=== PATIENT | female | born 1985 | race Caucasian/White ===

== ENCOUNTER → 2020-03-24 17:10 | Outpatient (CLI) | payer OTHER, SELFPAY ==
[2020-03-24 17:43] LABS: Add Manual Diff / Slide Review NO; Basophils Absolute Auto 100 /uL (0-100); Basophils Percent Auto 0.7 % (0-2); Eosinophils Absolute Auto 100 /uL (0-450); Eosinophils Percent Auto 1.4 % (2-4); Hematocrit 41.9 % (36-46); Hemoglobin 14.1 g/dL (12.0-16.0); Lymphocytes Absolute Auto 3100 /uL (1100-4500); Lymphocytes Percent Auto 32.8 % (25-40); Mean Corpuscular HGB Conc 33.7 % (30-36); Mean Corpuscular Hemoglobin 30.4 PG (26-34); Mean Corpuscular Volume 90.2 fL (80-100); Monocytes Absolute Auto 600 /uL (0-900); Monocytes Percent Auto 6.1 % (3-14); Neutrophils Absolute Auto 5600 /uL (1500-7000); Platelet Count 248 X10^3/uL (150-400); Red Blood Cell Count 4.65 X10^6/uL (4.0-5.2); Red Cell Distribution Width 12.9 % (11.6-14.8); White Blood Cell Count 9.5 X10^3/uL (4.5-11.0)
[2020-03-24 17:53] LABS: HEMOLYSIS < 15 (0-50); Iron 71 ug/dL (37-170)
[2020-03-24 17:55] LABS: Hemoglobin A1C% w Est Avg Glu 5.3 % (4.0-6.0)
[2020-03-24 17:56] LABS: Alanine Aminotransferase 15 IU/L (<35); Albumin 4.5 g/dL (3.5-5.0); Albumin Globulin Ratio 1.6 (1.0-2.8); Alkaline Phosphatase 73 U/L (38-126); Aspartate Aminotransferase 20 IU/L (14-36); BUN Creatinine Ratio 20.7 (6-22); Bilirubin Total 0.3 mg/dL (0.2-1.3); Blood Urea Nitrogen 12 mg/dL (7-17); Calcium 9.8 mg/dL (8.4-10.2); Carbon Dioxide 31 mmol/L (22-32); Chloride 102 mmol/L (98-107); Cholesterol 164 mg/dL (140-199); Estimated Glomerular Filt Rate > 60.0 mL/min (>60); Globulin 2.8 g/dL (1.7-4.1); Glucose 93 mg/dL (70-100); HDL Cholesterol 63 mg/dL (40-60); HEMOLYSIS < 15 (0-50); LDL Cholesterol Calculated 88 mg/dL (<100); Potassium 4.3 mmol/L (3.4-5.1); Sodium 137 mmol/L (137-145); Total Protein 7.3 g/dL (6.3-8.2); Triglycerides 64 mg/dL (35-150)
[2020-03-24 18:07] LABS: Percent Iron Saturation 24 % (15-50); Total Iron Binding Capacity 292 ug/dL (265-497); Transferrin 210 mg/dL (206-381)
[2020-03-24 18:27] LABS: Ferritin 85 ng/mL (6-137)
== END ==
PROVIDERS: PCP Family Medicine; Referring Provider Family Medicine; Visit Provider Family Medicine
DX: R63.2 Polyphagia (principal); Z13.0 Encounter for screening for diseases of the blood and blood-forming organs and certain disorders involving the immune mechanism; Z13.1 Encounter for screening for diabetes mellitus; Z13.220 Encounter for screening for lipoid disorders; Z13.228 Encounter for screening for other metabolic disorders; Z13.29 Encounter for screening for other suspected endocrine disorder; Z76.89 Persons encountering health services in other specified circumstances
CPT/HCPCS: 36415; 80053; 80061; 82728; 83036; 83540; 83550; 84443; 85025

== ENCOUNTER → 2020-07-08 16:52 | Outpatient (CLI) | payer OTHER, SELFPAY ==
[2020-07-08 21:30] LABS: Urine N gonorrhoeae NOT DETECTED
[2020-07-08 21:31] LABS: Urine Chlamydia NOT DETECTED
== END ==
PROVIDERS: PCP Family Medicine; Visit Provider Obstetrics & Gynecology
DX: Z34.81 Encounter for supervision of other normal pregnancy, first trimester (principal); Z3A.09 9 weeks gestation of pregnancy
CPT/HCPCS: 87491; 87591

== ENCOUNTER → 2020-07-21 16:17 | Outpatient (CLI) | payer OTHER, SELFPAY ==
[2020-07-21 17:31] LABS: Add Manual Diff / Slide Review NO; Basophils Absolute Auto 100 /uL (0-100); Basophils Percent Auto 0.5 % (0-2); Eosinophils Absolute Auto 100 /uL (0-450); Eosinophils Percent Auto 1.3 % (2-4); Hematocrit 38.8 % (36-46); Hemoglobin 13.7 g/dL (12.0-16.0); Lymphocytes Absolute Auto 2300 /uL (1100-4500); Lymphocytes Percent Auto 24.9 % (25-40); Mean Corpuscular HGB Conc 35.2 % (30-36); Mean Corpuscular Hemoglobin 32.1 PG (26-34); Mean Corpuscular Volume 91.1 fL (80-100); Monocytes Absolute Auto 600 /uL (0-900); Monocytes Percent Auto 6.5 % (3-14); Neutrophils Absolute Auto 6300 /uL (1500-7000); Neutrophils Percent Auto 66.8 % (50-75); Platelet Count 231 X10^3/uL (150-400); Red Blood Cell Count 4.26 X10^6/uL (4.0-5.2); Red Cell Distribution Width 13.1 % (11.6-14.8); White Blood Cell Count 9.4 X10^3/uL (4.5-11.0)
[2020-07-21 18:07] LABS: Rubella Antibody IgG 70.3 IU/mL (>15)
[2020-07-21 18:14] LABS: Hepatitis B Surface Antigen NEGATIVE s/c (NEGATIVE)
[2020-07-21 18:31] LABS: HIV 1 & 2 Ab/Ag 4th Gen Combo NEGATIVE (NEGATIVE); Hep C Virus Ab w/Reflex Quant NEGATIVE s/c (NEGATIVE)
[2020-07-22 12:53] LABS: RPR Screen Non Reactive (Non Reactive); Varicella IgG Antibody 1226 index (Immune >165)
== END ==
PROVIDERS: PCP Family Medicine; Referring Provider Obstetrics & Gynecology; Visit Provider Obstetrics & Gynecology
DX: Z34.81 Encounter for supervision of other normal pregnancy, first trimester (principal)
CPT/HCPCS: 36415; 80055; 86787; 86803; 86850; 86900; 86901; 87389

== ENCOUNTER → 2020-08-12 13:22 | Outpatient (CLI) | payer OTHER, SELFPAY ==
[2020-08-12 15:21] LABS: Appearance Urine UA CLOUDY; Bilirubin Urine UA NEGATIVE (NEGATIVE); Color Urine UA YELLOW; Glucose Urine UA NEGATIVE (Negative); Ketones Urine UA TRACE (NEGATIVE); Leukocyte Esterase Urine UA NEGATIVE (NEGATIVE); Nitrite Urine UA NEGATIVE (Negative); Occult Blood Urine UA NEGATIVE (Negative); Protein Urine UA NEGATIVE (Negative); Urobilinogen Urine UA 0.2 E.U./dL (0.2)
== END ==
PROVIDERS: PCP Family Medicine; Visit Provider Obstetrics & Gynecology
DX: O09.521 Supervision of elderly multigravida, first trimester (principal); Z36.0 Encounter for antenatal screening for chromosomal anomalies
CPT/HCPCS: 36415; 81003; 81420; 87086

== ENCOUNTER → 2020-09-09 16:19 | Outpatient (CLI) | payer OTHER, SELFPAY ==
[2020-09-11 20:36] LABS: AFP Value 70.2 ng/mL (.); Gest Age on Col Date 18.6 weeks (.); Gestational Age EDD (.); Insulin Dep Diabetes No (.); OSBR Risk 1IN 4664 (.); Results Report (.); Test Results *Screen Negative* (.)
== END ==
PROVIDERS: PCP Family Medicine; Referring Provider Obstetrics & Gynecology; Visit Provider Obstetrics & Gynecology
DX: Z34.82 Encounter for supervision of other normal pregnancy, second trimester (principal); Z3A.18 18 weeks gestation of pregnancy
CPT/HCPCS: 36415; 82105

== ENCOUNTER → 2020-10-07 15:33 | Outpatient (CLI) | payer OTHER, SELFPAY ==
--- NOTE | 2020-10-07 15:34 | DI.US.S_ITS ---
PROCEDURE: US OB >= 14 WEEKS FETUS INDICATIONS: 20 WEEK ANATOMY SCAN OUTSIDE/PRIOR DATING DATA: Last menstrual period (LMP): 05/06/2020. LMP-based estimated date of delivery (LULÚ): 02/10/2021. First dating scan (date and location): 07/08/2020. Estimated date of delivery (LULÚ) from first dating scan: 02/06/2021. TECHNIQUE: Real-time scanning was performed of the fetus, with image documentation and biometric measurements. COMPARISON: [facility], , OB <= 14 WEEKS FETUS, 07/08/2020, 17:04. [facility], , OB <= 14 WEEKS FETUS, 08/12/2020, 13:15. FINDINGS: General: A single living intrauterine gestation is present. Presentation: Variable Placenta: Placental position is posterior,, without previa. Amniotic fluid index: 13.9 cm, normal range is 5-24 cm. heart rate: 152 beats per minute. Maternal cervical canal: 4.1 cm long. Normal lower limit is 2.5 cm. biometrics: Biparietal diameter: 5.5 cm, 22 weeks, 4 days Head circumference: 20.1 cm, 22 weeks, 2 days Abdominal circumference: 18 cm, 22 weeks, 6 days Femur length: 3.9 cm, 22 weeks, 5 days Estimated gestational age from initial scan: 22 weeks, 4 days Composite gestational age from present scan: 22 weeks, 4 days Estimated weight and percentile: 527 grams, 50 percent. Measurement variability for biometric dating: +/- 7 days from 14 weeks to 15 weeks 6 days gestation, +/- 10 days from 16 weeks to 21 weeks 6 days gestation, +/- 2 weeks from 22 weeks to 27 weeks 6 days gestation, +/- 3 weeks for 28 weeks gestation or later. weight reference: 4500 g or EFW >90/95% is considered macrosomia or large for gestational age. EFW <10% is small for gestational age. EFW 5% or less is considered intra-uterine growth restriction. Anatomic survey: Neuro: Ventricles are non-dilated at less than 10 mm. Cisterna magna is normal at 3-11 mm. Cerebellum is normal in size and morphology. Nuchal skin fold: Normal at less than 6 mm between 14-21 weeks gestational age. Face: Nose and lips, facial profile are normal. Spine: No evidence for spina bifida. Heart: 4-chambered heart is present, with normal ventricular outflow tracts. Diaphragm: Diaphragm is intact. Stomach: Left-sided stomach is present. Kidneys: No hydronephrosis. Normal is less than 5 mm in 2nd trimester, less than 7 mm in 3rd trimester. Cord: 3-vessel cord has orthotopic insertion. Bladder: Normal in size. Extremities: All 4 extremities identified. IMPRESSION: 1. Single live intrauterine with fetus in variable presentation. heart rate is 152 beats per minute. Normal amount of amniotic fluid. Estimated weight is 527 grams and is at 50 percent. Normal growth. 2. Normal anatomic survey. Dictated by: Mac Teague M.D. on 10/07/2020 at 18:14 Approved by: Mac Teague M.D. on 10/07/2020 at 18:17
== END ==
PROVIDERS: PCP Family Medicine; Referring Provider Obstetrics & Gynecology; Visit Provider Obstetrics & Gynecology
DX: Z34.82 Encounter for supervision of other normal pregnancy, second trimester (principal); Z3A.22 22 weeks gestation of pregnancy
CPT/HCPCS: 76811

== ENCOUNTER → 2020-11-03 15:01 | Outpatient (CLI) | payer OTHER, SELFPAY ==
[2020-11-03 16:43] LABS: Hematocrit 34.1 % (36-46)
[2020-11-03 17:10] LABS: GTT (PREG) 1 Hour PP 50gm Dose 145 mg/dL (76-139)
== END ==
PROVIDERS: PCP Family Medicine; Referring Provider Obstetrics & Gynecology; Visit Provider Obstetrics & Gynecology
DX: Z34.82 Encounter for supervision of other normal pregnancy, second trimester (principal); Z3A.26 26 weeks gestation of pregnancy
CPT/HCPCS: 36415; 82950; 85014; 85018

== ENCOUNTER → 2020-11-05 07:57 | Outpatient (CLI) | payer OTHER, SELFPAY ==
[2020-11-05 10:02] LABS: Glucose 1 Hour Gest 138 mg/dL (76-180)
[2020-11-05 10:07] LABS: Glucose Fasting Gestational 80 mg/dL (76-95)
[2020-11-05 11:09] LABS: Glucose 2 Hour Gest 93 mg/dL (76-155)
[2020-11-05 12:19] LABS: Glucose Tol Interp,Gestational INTERPRETATION
[2020-11-05 12:23] LABS: Glucose 3 Hour Gest 76 mg/dL (76-140)
== END ==
PROVIDERS: PCP Family Medicine; Referring Provider Obstetrics & Gynecology; Visit Provider Obstetrics & Gynecology
DX: Z34.82 Encounter for supervision of other normal pregnancy, second trimester (principal); R73.09 Other abnormal glucose; Z3A.27 27 weeks gestation of pregnancy
CPT/HCPCS: 36415; 82951; 82952

== ENCOUNTER → 2021-01-14 12:16 | Outpatient (CLI) | payer OTHER, SELFPAY ==
[2021-01-15 10:42] LABS: Strep Grp B PCR NEG for Grp B Strep
== END ==
PROVIDERS: PCP Family Medicine; Visit Provider Obstetrics & Gynecology
DX: Z34.83 Encounter for supervision of other normal pregnancy, third trimester (principal); Z3A.36 36 weeks gestation of pregnancy
CPT/HCPCS: 87653

== ENCOUNTER 2021-02-02 07:04 | Inpatient (IN) | payer OTHER, SELFPAY ==
--- NOTE | 2021-02-02 07:43 | P.HPOB_ITS ---
OB HPI Date/Time Date of admission: 02/02/21 Date Patient Seen: 02/02/21 Time Patient Seen: 08:13 History of Present Condition Chief complaint: maternity LULÚ Calculator Estimated Delivery Date Method Current WG Current Estimate 02/06/21 Ultrasound #1 39w 4d Other Estimates 02/10/21 LMP (Certain) 39w 0d : 3 Para: 2 care: good care, initiated at week # (9), number of visits (10) and pounds weight gain (36) Dating criteria OB: LMP confirmed by 1st trimester US Ultrasounds: normal 1st trimester US and normal mid trimester US Obstetrical complications: none Medical complications OB: none Indications Indication for induction OB: other (History of large for gestational age infants) Preadmission Labs Last OB Lab Results: Blood Type O Positive 02/02/21 08:10 02/02/21 Antibody Screen Negative 02/02/21 08:10 02/02/21 Hematocrit 37.1 % (36-46) 02/02/21 08:10 02/02/21 Hemoglobin 12.6 g/dL (12.0-16.0) 02/02/21 08:10 02/02/21 Hepatitis B Surface Antigen Negative s/c (NEGATIVE) 07/21/20 16:22 07/21/20 Hepatitis C Antibody Negative s/c (NEGATIVE) 07/21/20 16:22 07/21/20 Rubella Antibody 70.3 IU/mL (>15) 07/21/20 16:22 07/21/20 Varicella-Zoster IgG Antibody 1226 index (Immune >165) 07/21/20 16:22 07/21/20 Glucose 1 Hour 145 mg/dL (76-139) H 11/03/20 15:05 11/03/20 Group B Streptococcus (PCR) Neg for grp b strep 01/14/21 12:16 01/14/21 Glucose Tolerance Testing: Fasting (80), 1 hr (138), 2 hr (93) and 3 hr (76) -: Chlamydia screen: negative, Gonorrhea screen: negative and Urine: negative -: PAP smear: Normal Genetic Screens: Cell-free DNA: Normal (normal female) and Alpha-fetoprotein: Normal External Labs -: Urine: negative Prior (ies) Past Pregnancies Del. Date GA/Weeks Labor Lgth Wt Sex Route Outcome Anesthesia Place Delv Breastfeed Preg Comp Name 12/02/15 39.6 21 9 lb Male vaginal live - full term epidu ral [place] 15 months hemorrhage [place] 04/13/18 40.4 19 9 lb 1 oz Female vaginal live - full ter m epidural [place] 15 months other [place] Delivery Date: 12/02/15 Last Updated by: Holly Malagon R.N. *I had a high leak - prolonged SROM. *Son was Posterior. *Pushed for X 4 hours : prolonged second stage. *Hemorrhage PP. *Sutures to repair 2nd degree Tear did not heal for months. *Some Baby Blues. *Late to PT support : 8 months PP for pelvic floor issues. Delivery Date: 04/13/18 Last Updated by: Holly Malagon R.N. *Early PT for pubis symphysis disorder. *Induction. *I had a high leak again and it was confirmed on U/S. *Epidural at 7 cm. *Did well PP. Evaluation Evaluation Baseline heart rate: 135 Variability: Moderate (11-25) monitor accelerations: Present Contraction Frequency (minutes): 2 Uterine Contraction Intensity: Mild Status: Category l Dilation (cm): 3 Effacement (%): 80 Dilation: 3-4 cm Effacement: >/=80% station: -1 Position of cervix: mid Consistency: soft Martin score: 10 PFSH Medical History (Updated 12/22/20 @ 14:47 by Nam Roberto MD) AMA (advanced maternal age) multigravida 35+ Contact dermatitis Dandruff Endometriosis Iron deficiency anemia [place] exposure Sprain, symphysis pubis (spontaneous vaginal delivery) (~12/02/15) (spontaneous vaginal delivery) (~04/13/18) Whooping cough Surgical History (Updated 06/25/20 @ 15:56 by Holly Malagon RN) [place] teeth extracted Family History (Updated 06/25/20 @ 15:51 by Holly Malagon RN) Mother Endometriosis Father No problems noted. Grandmother CVA (cerebral vascular accident) Lupus (systemic lupus erythematosus) Cardiac anomaly Heart valve replaced Rheumatic fever Endometriosis Myasthenia gravis Grandfather Obesity Grandmother Old age Diabetes mellitus Grandfather Diabetes mellitus Hypertension Brother Asthma Family/Other Endometriosis Social History marital status: number of children: 2 household members: spouse and children lives independently: Yes pets and animals: No education level: college (Speech language Pathologist ) occupational status: unemployed current occupational exposures/hazards: No Previous occupational history: Speech language Pathologist parisa/holiness: [employer] special parisa needs: No Smoking Status: Never smoker second hand exposure: No alcohol intake: former (Pre- : 1-2 nights per week ) substance use type: does not use Meds Home Medications and Allergies Home Medications Medication Instructions Recorded Confirmed Type prenat.vits,abdelrahman,[id number] 1 tab PO DAILY 06/25/20 02/02/21 History Allergies Allergy/AdvReac Type Severity Reaction Status Date / Time suture Allergy Severe Did not Verified 01/26/21 11:56 heal : 3.0 Vicryl + 4.0 Chromic hydromorphone [From Dilaudid] Allergy Unknown Family Verified 01/26/21 11:56 History: Cardiac Arrest sensitive skin AdvReac Intermediate Unusual Uncoded 01/26/21 11:56 reaction : ? dermatology issue OB Exam Narrative Exam Narrative: Generally: Patient comfortable even with contractions which are very short Lungs: Clear to auscultation bilaterally Cardiovascular: Regular rate and rhythm Fundal height: 39 cm Estimated weight: 8 lb Extremities: No edema, 1+ DTRs Objective Labs Result Diagrams: 02/02/21 08:10 Assessment and Plan Assessment and Plan Assessment and Plan narrative: Assessment: 36-year-old 3 para 2 at 39 4/7 weeks gestation for induction of labor due to history of 2 large for gestational age infants Plan: Pitocin per protocol 2 to over ride the short contractions she is currently having Artificial rupture membranes mid morning Epidural as necessary Expected management to spontaneous vaginal delivery Time Spent with Patient Total time spent with greater than 50% in coordination of care (as documented) at patient's floor/unit and/or counseling patient:: 15-24 minutes
[2021-02-02] MEDS: LACTATED RINGERS 1,000 ML 100 ML IV ×3 (08:00→13:36)
[2021-02-02] MEDS: OXYTOCIN PREMIX 30 UNIT/500 ML PLAST..BAG IV (08:00)
[2021-02-02 08:21] LABS: Add Manual Diff / Slide Review NO; Basophils Absolute Auto 100 /uL (0-100); Basophils Percent Auto 0.6 % (0-2); Eosinophils Absolute Auto 200 /uL (0-450); Eosinophils Percent Auto 1.5 % (2-4); Hematocrit 37.1 % (36-46); Hemoglobin 12.6 g/dL (12.0-16.0); Lymphocytes Absolute Auto 1900 /uL (1100-4500); Lymphocytes Percent Auto 18.3 % (25-40); Mean Corpuscular HGB Conc 34.1 % (30-36); Mean Corpuscular Hemoglobin 30.7 PG (26-34); Mean Corpuscular Volume 90.1 fL (80-100); Monocytes Absolute Auto 1000 /uL (0-900); Monocytes Percent Auto 9.4 % (3-14); Neutrophils Absolute Auto 7400 /uL (1500-7000); Neutrophils Percent Auto 70.2 % (50-75); Platelet Count 152 X10^3/uL (150-400); Red Blood Cell Count 4.11 X10^6/uL (4.0-5.2); White Blood Cell Count 10.5 X10^3/uL (4.5-11.0)
[2021-02-02 08:27] VITALS: BP 108/67
[2021-02-02 08:41] LABS: COVID19 -Nasal RAPID Negative (Negative)
--- NOTE | 2021-02-02 13:41 | P.PCN_ITS ---
Regional Block Pre-procedure Procedure: Continuous Lumbar Epidural for L&D Attending OB provider: Elsa Mary PMH/ROS narrative: here for induction of labor Hx: No personal or family history of anesthesia problems. PSH/Anesthesia history narrative: two previous epidurals were too strong where she could not feel enough to push. She would like this one less strong. Exam narrative: MP2, RRR, CTAB ASA Class: II Labs: Hct 37.1 % (36-46) 02/02/21 08:10 Plt Count 152 X10^3/uL (150-400) 02/02/21 08:10 Medications: Current Medications Generic Name Dose Route Start Last Admin Trade Name Freq PRN Reason Stop Dose Admin Calcium Carbonate 1,000 mg 02/02/21 08:10 Calcium Carbonate 500 Mg Tab PO Q2HR PRN Dyspepsia Carboprost Tromethamine 250 mcg 02/02/21 08:10 Carboprost 250 Mcg/Ml Ampul IM Q90M PRN Bleeding Fentanyl 50 mcg 02/02/21 08:10 Fentanyl 100 Mcg/2 Ml Inj IV Q1H PRN Pain, Moderate (4-6) Lactated Ringer's 1,000 mls @ 100 mls/hr 02/02/21 08:15 02/02/21 13:36 Lactated Ringers IV 100 mls/hr CONT CHEMA Administration Oxytocin/Lactated Ringer's 30 unit in 500 mls @ 200 mls/hr 02/02/21 08:10 Oxytocin Premix IV CONT PRN Bleeding Protocol Tranexamic Acid 1,000 mg/ 100 mls @ 200 mls/hr 02/02/21 08:10 Sodium Chloride IV NOW PRN Bleeding Oxytocin/Lactated Ringer's 30 unit in 500 mls @ 3 mls/hr 02/02/21 08:15 Oxytocin Premix IV TITRATE CHEMA Protocol 3 MILLIUNIT/MIN Methylergonovine Maleate 0.2 mg 02/02/21 08:10 Methylergonovine 0.2 Mg Tablet PO Q6HR PRN Heavy Bleeding Methylergonovine Maleate 0.2 mg 02/02/21 08:10 Methylergonovine 0.2 Mg/Ml Vial IM NOW PRN Bleeding Metoclopramide HCl 10 mg 02/02/21 08:10 Metoclopramide 10 Mg/2 Ml Inj IV NOW PRN Nausea And Vomiting Misoprostol 800 mcg 02/02/21 08:10 Misoprostol 200 Mcg Tablet IN NOW PRN Bleeding Misoprostol 1,000 mcg 02/02/21 08:10 Misoprostol 200 Mcg Tablet IN NOW PRN Bleeding Misoprostol 400 mcg 02/02/21 08:10 Misoprostol 200 Mcg Tablet SL NOW PRN Bleeding Naloxone HCl 0.2 mg 02/02/21 08:10 Naloxone 0.4 Mg/Ml Vial IV Q2MIN PRN Opiate Reversal Ondansetron HCl 4 mg 02/02/21 08:10 Ondansetron 4 Mg/2 Ml Inj IV Q4HR PRN Nausea And Vomiting Oxytocin 10 unit 02/02/21 08:10 Oxytocin 10 Unit/Ml Vial IM NOW PRN Bleeding Allergies: Allergies Allergy/AdvReac Type Severity Reaction Status Date / Time suture Allergy Severe Did not Verified 01/26/21 11:56 heal : 3.0 Vicryl + 4.0 Chromic hydromorphone [From Dilaudid] Allergy Unknown Family Verified 01/26/21 11:56 History: Cardiac Arrest sensitive skin AdvReac Intermediate Unusual Uncoded 01/26/21 11:56 reaction : ? dermatology issue Procedure Insertion date: 02/02/21 Insertion time: 12:32 Prep/Local: betadine x3 (chloroprep) and 1% lidocaine Interspace: L4-5 Patient position: sitting Needle: 18 gauge Hustead (with 27G pencil point needle-through needle for IT dose) Loss of resistance with: saline (with air bubble) OSMAR at (cm): 5 (Initially 4.5cm OSMAR at L3-4, (+) CSF with Hustead, fentanyl given, catheter threaded with (+) blood and removed/flushed. Reattempted at L4- 5 with OSMAR at 5cm, (+) dural puncture, no IT dose given. Catheter threaded and test dose given.) Catheter placed at SKIN (cm): 10 Catheter in SPACE (cm): 5 Insertion: Yes CSF, Yes Blood, No Paresthesia with insertion, No Paresthesia with injection and No Test dose reaction Initial Medications TEST DOSE time: 12:32 TEST DOSE: 1.5% lidocaine with epinephrine 1:200k (mL): 5 (3mL initial test dose, 2mL as part of first bolus) BOLUS DOSE time: 12:33 BOLUS DOSE (mL): 2 BOLUS DOSE med: other (10mcg fentanyl intrathecally, 90mcg fentanyl via epidural catheter) Infusion INFUSION: 0.0625% bupivacaine and with fentanyl 2 mcg/mL Initial rate (mL/hr): 9 (with bolus of 5mL Q15min lockout) Subsequent interventions: 15:23 - patient pushing but would benefit from feeling more. Turned down to 6mL/hr. Post-procedure Anesthesia time START: 12:11 Anesthesia time END: 17:42 Post-procedure Anesthesia Assessment: No Anesthesia complications
--- NOTE | 2021-02-02 17:09 | PM.OBPNLAB ---
Date/Time Date Patient Seen: 02/02/21 Time Patient Seen: 11:54 Pain Control Pain control: epidural Pelvic Exam Dilation (cm): 10 Effacement (%): 100 station: +2 Amniotic membrane status: Ruptured Contractions Contractions on admission: irregular Monitor mode: External Pitocin rate (mU/min): 20 Contraction frequency (min): 3 Contraction duration (min): 1 Contraction pattern: Regular Contraction intensity: Strong/Firm Status status: Category l Heart Rate Baseline: 135 Monitor Accelerations: Present Monitor Decelerations: Absent Monitor Variability: Moderate Assessment and Plan Assessment: active labor (Second stage) Plan: other (Begin pushing)
--- NOTE | 2021-02-02 17:58 | PM.OBPRVD ---
Events: Labor Induction Labor & Delivery Delivery date: 02/02/21 Intrapartal Events: None Cervical ripening method: none Induction method: per pitocin protocol Delivery augmentation: rupture of membranes Delivery monitor: external FHT and external uterine Route of delivery: Episiotomy description: None L&D Laceration Description: Perineal - 1st Degree and Labial (Right, superficial) Delivery repair: chromic Estimated blood loss (mL): 150 Anesthesia Type: Epidural Complications: None Narrative: Patient complete and pushed for 30 minutes. At 5:42 p.m., a live female infant delivered spontaneously in the KEYLA presentation. No nuchal cord. The remainder of the body delivered without difficulty and was placed on mom's abdomen. After the cord stopped pulsing, the cord was double clamped and cut. Cord bloods were obtained. Pitocin was given in the IV fluids at 220 cc/hour. At 5:50 p.m., the placenta delivered intact with a three-vessel cord. The fundus was massaged to firm. There was a first-degree perineal laceration and a right superficial labia minora laceration. The perineal laceration was closed with 3-0 chromic. The superficial labia minora laceration was closed with 4-0 chromic. Estimated blood loss 150 cc. Apgars 9 at 1 minute and 9 at 5 minutes. Weight 8 lb 4 oz. Epidural analgesia. Mom and stable to recovery. Baby 1: Infant gender: Female Presentation: vertex Position: Right Occiput Anterior Placenta delivery description: Spontaneous Cord Vessel Description: 3 Vessels score (1 min): 9 score (5 min): 9 weight: 8 lb 4 oz Plan for aftercare: Routine care
[2021-02-02] MEDS: LANOLIN OINT 7 GM 1 APPLIC TOP (19:28)
[2021-02-02] MEDS: DERMOPLAST SPRAY 20% 60 ML 1 SPRAY TOP (19:28)
[2021-02-02] MEDS: ACETAMINOPHEN 325 MG TABLET 650 MG PO (19:28)
[2021-02-02] MEDS: IBUPROFEN 600 MG TABLET PO (19:29)
[2021-02-03] MEDS: IBUPROFEN 600 MG TABLET PO ×3 (02:15→15:24)
[2021-02-03] MEDS: ACETAMINOPHEN 325 MG TABLET 650 MG PO ×3 (02:15→15:25)
--- NOTE | 2021-02-03 05:24 | PM.OBPNLAB ---
Date/Time Date Patient Seen: 02/02/21 Time Patient Seen: 11:54 Pain Control Pain control: tolerating well Pelvic Exam Dilation (cm): 4 Effacement (%): 90 station: -1 Amniotic membrane status: Intact Contractions Contractions on admission: irregular Monitor mode: External Pitocin rate (mU/min): 12 Contraction frequency (min): 2 Contraction pattern: Irregular Contraction intensity: Mild Status status: Category l Heart Rate Baseline: 140 Monitor Accelerations: Present Monitor Decelerations: Absent Monitor Variability: Moderate Assessment and Plan Assessment: induction ongoing Plan: other (Artificial rupture of membranes with small amount of clear amniotic fluid. Epidural as necessary)
[2021-02-03 06:35] LABS: Hematocrit 32.6 % (36-46); Hemoglobin 11.2 g/dL (12.0-16.0)
[2021-02-03] MEDS: PRENATAL VIT,CALC/IRON/FOLIC 1 TABLET 1 TAB PO (08:25)
[2021-02-03] MEDS: DOCUSATE 100 MG CAPSULE PO (08:25)
[2021-02-03 14:50] VITALS: BP 102/66; PULSE 69; RESP 16; TEMP 36.8
--- NOTE | 2021-02-08 10:25 | PM.OBDS.1 ---
Discharge Providers Provider Date of admission: 02/02/21 07:04 Discharge Date: 02/03/21 Primary care physician: Chandler Henriquez DO Consults: Anesthesia Discharge provider: Elsa Mary MD Summary Hospital Course Date Patient Seen: 02/03/21 Time Patient Seen: 13:00 Diagnoses: 39 weeks gestation Induction of labor History of large for gestational age infants Spontaneous vaginal delivery Epidural analgesia Hospital Course: Patient is a 36-year-old 3 para 3 who presented on February 02, 2021 for scheduled induction of labor. She was started on Pitocin. Artificial rupture membranes was performed. She received an epidural for pain management. She progressed to complete dilation and had a spontaneous vaginal delivery without complication. Her course was unremarkable and she was discharged home on day # 1. Peripartum Data Delivery Method: Natural Vaginal Laceration Description: Perineal - 1st Degree and Labial (Right) Episiotomy description: None Procedures: Induction of labor Pitocin Artificial rupture of membranes Epidural analgesia Spontaneous vaginal delivery First-degree perineal and right labial laceration repair complications: none [place] 1: Gender: Female Disposition of : home Status at Discharge Cognitive/behavioral status at discharge: oriented Functional status at discharge: independent ambulation Overall status at discharge: patient is progressing back to baseline Time Spent with Patient Time attestation: Total time spent providing and/or coordinating discharge services: Time spent: Less than 30 minutes Objective Labs Result Diagrams: 02/03/21 06:20 Exam Narrative Exam Narrative: Generally: Patient is sitting up in bed, no acute distress Fundus: Firm at U-1 Extremities: Negative Homans, no edema Discharge Plan Discharge Plan Patient Disposition: Home Provider Discharge Comment: Call with fever, chills, or bleeding vaginally more than a pad in an hour Tylenol 650 mg every 6 hours as needed Ibuprofen 600 mg every 6 hours as needed for cramping Discharge orders & Medications Prescriptions: Continued prenat.vits,abdelrahman,[id number] Tablet 1 tab PO DAILY 0RF Follow up/Referrals: Elsa Mary MD [Physician] - 6 Weeks ( appointment TuesdayFebruary 11 @ 11:00am [address] Mary March 24 @ 2:30pm) Diet/Activity/Treatments Diet: Regular Activity: Nothing in the vagina for 6 weeks Skin/Wound/Dressing Care Report to your healthcare provider any signs of infection, such as:: chills, fever, increased pain and unusual drainage Visit Report/Discharge Packet Instructions: DI for Labor and Delivery, Vaginal Stand Alone Forms: Discharge: Care Discharge Data Primary Care Provider: Chandler Henriquez
== END 2021-02-03 16:25 | disposition home or self-care (01) | DRG 807 ==
PROVIDERS: Admitting Provider Obstetrics & Gynecology; PCP Family Medicine; Referring Provider Obstetrics & Gynecology; Visit Provider Obstetrics & Gynecology
DX: O70.0 First degree perineal laceration during delivery (principal); Z37.0 Single live birth; Z3A.39 39 weeks gestation of pregnancy; O99.891 Other specified diseases and conditions complicating pregnancy; Z20.822 Contact with and (suspected) exposure to COVID-19
CPT/HCPCS: 01967; 36415; 59050; 59400; 85014; 85018; 85025; 86850; 86900; 86901; 87635; C9803; G0379; J2590

== ENCOUNTER 2021-07-29 10:30 | Outpatient (RCR) | payer OTHER, SELFPAY ==
--- NOTE | 2021-04-01 13:52 | PT.OPPOC ---
Physical, Occupational & Speech Therapy At [facility] Current Diagnoses Umbilical hernia without obstruction or gangrene (04/01/21) Separation of muscle (nontraumatic), other site (04/01/21) Sprain of other parts of lumbar spine and pelvis, initial encounter (04/01/21) Visit Care Team Role Provider Type Chandler Henriquez DO Primary Care Provider Physician Specialty: Family Practice Address: [address] [place] [address] Email: [email or web address] Elsa Mary MD Attending Provider Physician Referring Provider Specialty: Gynecology [employer] Obstetrics Address: [address] [place] [address], [id number] Email: [email or web address] Plan Of Care PT-OP-T Assessment and Plan Start: 04/01/21 10:34 Freq: Status: Active Protocol: Document 04/01/21 10:30 [facility] (Rec: 04/05/21 13:50 [facility] [id number]) Physical Therapy Assessment Rehab Potential Rehabilitation Potential Excellent Evaluation Complexity Number of Personal Factors/Comorbidities 0 Number of Body Systems Impaired 1-2 Clinical Presentation at Evaluation Stable Impairments Impairments Activity Tolerance,Functional Activities,Gait,Pain,Posture, Soft Tissue Mobility,Strength, Tone Goals 3 Impairment Decreased endurance of the pelvic floor Custodial Goal (LTG) Cris is able to sustain a pelvic floor contraction x 10 seconds in standing and supine for improved functional support of her pelvic organs LTG Duration 8 weeks 2 Impairment Abdominal diastasis and core weakness Short Term Goal (STG) Cris is able to activate her transverse abdominal musculature and sustain a contraction x 10 seconds STG Duration 3 weeks Custodial Goal (LTG) Cris demonstrates improved core strength including the ability to curl up without abdominal separation LTG Duration 8 weeks 1 Impairment pelvic floor weakness Short Term Goal (STG) Cris is able to increase her MMT(from 1/5 on the right and 2/5 all others) by one muscle grade for improved support of her bladder STG Duration 4 weeks Custodial Goal (LTG) Cris is able to improve her pelvic floor muscle strength to 4/5 MMT or better for improved pelvic organ support and to be able to progress her exercise and activity level without any urinary leakage. LTG Duration 8 weeks Assessment Summary Assessment Cris is a 36 year old female who was seen in Pt during her for R SI pain. She returns to PT 2 months and reports she is very happy with how her labor and delivery turned out and she feels that by doing strengthening with PT during her that she is stronger this time than with her last delivery. She reports she hasn't tried any exercise yet and hasn't returned to intercourse. She reports feeling weak overall and hasn't pushed herself. With examination today her skin in her vaginal tissue looks well healed. She is able to pull up from the perineum. There is a small amount of scar tissue present in the perineum. With pelvic floor examination there is tenderness on the right lateral wall of the levator ani and stitches are felt. She tests a 1/5 MMT for the right lateral wall and 2/5 MMT for anterior, left, and posterior antonio. There is a 2 finger width diastasis present at the umbilicus and pt has a history of a umbilical hernia. With head lift there is no abdominal bulging present. Cris is a good candidate for PT for pelvic floor and core strengthening . Physical Therapy Plan Frequency and Duration Frequency of Treatment 1x/Week Duration of Treatment 12 Plan of Care Start Date 04/01/21 Plan of Care End Date 05/27/21 Therapeutic Interventions Therapeutic Interventions Home Exercise Program,Manual Therapy,Neuromuscular Re- education,Patient/Caregiver Education,Self-Care/Home Management,Soft Tissue Mobilization,Therapeutic Exercises Modalities Biofeedback Next Visit Focus/Plan Next Note Type Treatment Note Next Visit Plan EMG biofeedback for pelvic floor strengthening and endurance training, core stabilization exercises and SI stabilization exercises. Plan of Care Dates Plan of Care Start Date 04/01/21 Plan of Care End Date 05/27/21 Electronically Signed by: Lorenza Duke, PT 04/05/21 [id number] Please Sign and Return: I have reviewed this Plan of Care and certify that the skilled therapy services above are required to meet the patient?s needs. Physician Signature Date Printed Name and Credentials Clinical Instructor Signature Printed Name and Credentials
--- NOTE | 2021-04-01 13:52 | PT.OIE ---
Current Diagnoses Umbilical hernia without obstruction or gangrene (04/01/21) Separation of muscle (nontraumatic), other site (04/01/21) Sprain of other parts of lumbar spine and pelvis, initial encounter (04/01/21) Past Medical History (Last Updated 02/08/21 @ 19:34 by Elsa Mary MD) AMA (advanced maternal age) multigravida 35+ Contact dermatitis Dandruff Endometriosis Iron deficiency anemia [place] exposure Sprain, symphysis pubis (spontaneous vaginal delivery) (~12/02/15) (spontaneous vaginal delivery) (~04/13/18) Whooping cough [place] teeth extracted Past Surgical History (Last Updated 06/25/20 @ 15:56 by Holly Malagon RN) [place] teeth extracted Visit Care Team Role Provider Type Chandler Henriquez DO Primary Care Provider Physician Specialty: Family Practice Address: [address] [place] [address] Email: [email or web address] Elsa Mary MD Attending Provider Physician Referring Provider Specialty: Gynecology [employer]MAIL MARKETING COORDINATOR Obstetrics Address: [address] [place] [address], [id number] Email: [email or web address] Physical Therapy Initial Evaluation PT-OP-A Visit Information Start: 04/01/21 10:34 Freq: Status: Active Protocol: Document 04/01/21 10:34 [facility] (Rec: 04/01/21 10:44 [facility] [id number]) Out-Patient Physical Therapy Visit Information Visit Information Visit Type Initial Evaluation Visit Start Time 10:35 Visit Stop Time 11:15 Total Visit Minutes 40 Visit Number 1 Evaluation Information Evaluation Date 04/01/21 PT-OP-B Current Condition Start: 04/01/21 10:34 Freq: Status: Active Protocol: Document 04/01/21 10:34 [facility] (Rec: 04/01/21 10:44 [facility] [id number]) Current Condition History of Current Condition Onset Date with Current Complaints core and pelvic floor weakness, frequency of urination History of Current Condition pt is 2 months , she noticies that every time she gets up to feed her baby at night she has to void. She hasn't moved much overall but feels a sense of weakness in general. Even during the day she is voiding more frequently . She had a perineal tear and internal stiches. She is doing really well with her SI joint but when carrying her baby she notes her right side is alot stonger and left side is weak. The abdominal hernia doesn't seem as bad as she was worried it would be. Treatment Goals Patient/Caregiver Goals pts treatment goals include increasing core strength and stability for her SI joint and pelvic floor Prior Functional Status Baseline Function- ADL's Independent Baseline Function- Mobility Independent Baseline Function- Recreation/Hobbies pt was limited with exercise and gait distance during due to SI pain. Current Functional Impairments (Reported) Functional Limitations- Mobility/Gait limited in endurance and feels weak with mobility and gait at 2 months PT-OP-C Subjective Start: 04/01/21 10:34 Freq: Status: Active Protocol: Document 04/01/21 10:35 [facility] (Rec: 04/05/21 13:51 [facility] [id number]) OP-PT Pain Assessment Location R SI joint Pain Location Details right SI joint Scale Used Numeric (0 - 10) Description With Movement Frequency Daily Pain Duration right SI pain with movement PT-OP-F Manual Assessment Start: 04/01/21 10:34 Freq: Status: Active Protocol: Document 04/01/21 10:30 [facility] (Rec: 04/05/21 13:50 [facility] [id number]) Manual Assessments Soft Tissue Assessment Soft Tissue Mobility Assessment abdominal diastasis: 2 finger width diastasis at the umbilicus no bulging present with head lift Joint Mobility Assessment Joint Mobility Assessment + 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 PT-OP-I Pelvic Floor Start: 04/01/21 10:38 Freq: Status: Active Protocol: Document 04/01/21 10:30 [facility] (Rec: 04/05/21 13:50 [facility] [id number]) Pelvic Floor Assessment Urine Pelvic Floor Surgery No Urinary Symptoms Urge Sensation Other Urinary Symptoms urinary frequency Leakage Cause Exercise Nocturia 1-2 Pelvic Clock Pelvic Clock 12-3 Atrophy Pelvic Clock 3-6 Atrophy Pelvic Clock 6-9 Atrophy,Tenderness Pelvic Clock 9-12 Atrophy Pelvic Clock Other right lateral wall tender to palpation with internal stitches felt Prolapse Cystocele Grade 1 Rectocele Grade 1 Perineal Descent Resting Absent Bearing Present SEMG (uV) Baseline 1.5 10 Second Contraction 3.9 Relaxation Fair Holding Fair Stability of Hold Fair SEMG Stability of Rest Fair Contraction Ability Voluntary Contraction Weak Voluntary Relaxation Weak Manual Muscle Testing Left 2 Manual Muscle Testing Right 1 Manual Muscle Testing Anterior 2 Manual Muscle Testing Posterior 2 Muscle Endurance (Seconds) 5 Comments Pelvic Floor Comments on EMG biofeedback 3.9 uv average and 10.7 uv max good healing of the vulvar region and labia with skin inpection, able to pull up and in from the perineum. Some scar tissue present at the perineum. PT-OP-L Special Tests Start: 04/01/21 10:38 Freq: Status: Active Protocol: Document 04/01/21 10:30 [facility] (Rec: 04/05/21 13:50 [facility] [id number]) Special Tests Other Special Tests Special Tests + ASLR on the left for right sided SI instability PT-OP-M Strength Start: 04/01/21 10:38 Freq: Status: Active Protocol: Document 04/01/21 10:30 [facility] (Rec: 04/05/21 13:50 [facility] [id number]) Trunk Strength Trunk Manual Muscle Testing Testing Position Supine Flexion 3 Fair Core Stabilization decreased activation of the Transverse abdominal muscle PT-OP-T Assessment and Plan Start: 04/01/21 10:34 Freq: Status: Active Protocol: Document 04/01/21 10:30 [facility] (Rec: 04/05/21 13:50 [facility] [id number]) Physical Therapy Assessment Rehab Potential Rehabilitation Potential Excellent Evaluation Complexity Number of Personal Factors/Comorbidities 0 Number of Body Systems Impaired 1-2 Clinical Presentation at Evaluation Stable Impairments Impairments Activity Tolerance,Functional Activities,Gait,Pain,Posture, Soft Tissue Mobility,Strength, Tone Goals 3 Impairment Decreased endurance of the pelvic floor Prison Goal (LTG) Cris is able to sustain a pelvic floor contraction x 10 seconds in standing and supine for improved functional support of her pelvic organs LTG Duration 8 weeks 2 Impairment Abdominal diastasis and core weakness Short Term Goal (STG) Cris is able to activate her transverse abdominal musculature and sustain a contraction x 10 seconds STG Duration 3 weeks Bdc Manager Goal (LTG) Cris demonstrates improved core strength including the ability to curl up without abdominal separation LTG Duration 8 weeks 1 Impairment pelvic floor weakness Short Term Goal (STG) Cris is able to increase her MMT(from 1/5 on the right and 2/5 all others) by one muscle grade for improved support of her bladder STG Duration 4 weeks Bdc Manager Goal (LTG) Cris is able to improve her pelvic floor muscle strength to 4/5 MMT or better for improved pelvic organ support and to be able to progress her exercise and activity level without any urinary leakage. LTG Duration 8 weeks Assessment Summary Assessment Cris is a 36 year old female who was seen in Pt during her for R SI pain. She returns to PT 2 months and reports she is very happy with how her labor and delivery turned out and she feels that by doing strengthening with PT during her that she is stronger this time than with her last delivery. She reports she hasn't tried any exercise yet and hasn't returned to intercourse. She reports feeling weak overall and hasn't pushed herself. With examination today her skin in her vaginal tissue looks well healed. She is able to pull up from the perineum. There is a small amount of scar tissue present in the perineum. With pelvic floor examination there is tenderness on the right lateral wall of the levator ani and stitches are felt. She tests a 1/5 MMT for the right lateral wall and 2/5 MMT for anterior, left, and posterior antonio. There is a 2 finger width diastasis present at the umbilicus and pt has a history of a umbilical hernia. With head lift there is no abdominal bulging present. Cris is a good candidate for PT for pelvic floor and core strengthening . Physical Therapy Plan Frequency and Duration Frequency of Treatment 1x/Week Duration of Treatment 12 Plan of Care Start Date 04/01/21 Plan of Care End Date 05/27/21 Therapeutic Interventions Therapeutic Interventions Home Exercise Program,Manual Therapy,Neuromuscular Re- education,Patient/Caregiver Education,Self-Care/Home Management,Soft Tissue Mobilization,Therapeutic Exercises Modalities Biofeedback Next Visit Focus/Plan Next Note Type Treatment Note Next Visit Plan EMG biofeedback for pelvic floor strengthening and endurance training, core stabilization exercises and SI stabilization exercises.
--- NOTE | 2021-04-08 11:30 | PT.OTN ---
Current Diagnoses Umbilical hernia without obstruction or gangrene (04/08/21) Separation of muscle (nontraumatic), other site (04/08/21) Sprain of other parts of lumbar spine and pelvis, initial encounter (04/08/21) Physical Therapy Treatment Note PT-OP-A Visit Information Start: 04/01/21 10:34 Freq: Status: Active Protocol: Document 04/08/21 10:30 [facility] (Rec: 04/08/21 11:27 [facility] [id number]) Out-Patient Physical Therapy Visit Information Visit Information Visit Type Treatment Note Visit Start Time 10:30 Visit Stop Time 11:15 Total Visit Minutes 45 Visit Number 2 PT-OP-B Current Condition Start: 04/01/21 10:34 Freq: Status: Active Protocol: Document 04/01/21 10:30 [facility] (Rec: 04/01/21 10:44 [facility] [id number]) Current Condition History of Current Condition Onset Date with Current Complaints core and pelvic floor weakness, frequency of urination History of Current Condition pt is 2 months , she noticies that every time she gets up to feed her baby at night she has to void. She hasn't moved much overall but feels a sense of weakness in general. Even during the day she is voiding more frequently . She had a perineal tear and internal stiches. She is doing really well with her SI joint but when carrying her baby she notes her right side is alot stonger and left side is weak. The abdominal hernia doesn't seem as bad as she was worried it would be. Treatment Goals Patient/Caregiver Goals pts treatment goals include increasing core strength and stability for her SI joint and pelvic floor Prior Functional Status Baseline Function- ADL's Independent Baseline Function- Mobility Independent Baseline Function- Recreation/Hobbies pt was limited with exercise and gait distance during due to SI pain. Current Functional Impairments (Reported) Functional Limitations- Mobility/Gait limited in endurance and feels weak with mobility and gait at 2 months PT-OP-C Subjective Start: 04/01/21 10:34 Freq: Status: Active Protocol: Document 04/08/21 10:30 [facility] (Rec: 04/08/21 10:55 [facility] [id number]) OP-PT Subjective Patient Comments Patient Comments pt reports she has been trying to do the exercises, she was able to do the marches without pain. 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 PT-OP-I Pelvic Floor Start: 04/01/21 10:38 Freq: Status: Active Protocol: Document 04/01/21 10:30 [facility] (Rec: 04/05/21 13:50 [facility] [id number]) Pelvic Floor Assessment Urine Pelvic Floor Surgery No Urinary Symptoms Urge Sensation Other Urinary Symptoms urinary frequency Leakage Cause Exercise Nocturia 1-2 Pelvic Clock Pelvic Clock 12-3 Atrophy Pelvic Clock 3-6 Atrophy Pelvic Clock 6-9 Atrophy,Tenderness Pelvic Clock 9-12 Atrophy Pelvic Clock Other right lateral wall tender to palpation with internal stitches felt Prolapse Cystocele Grade 1 Rectocele Grade 1 Perineal Descent Resting Absent Bearing Present SEMG (uV) Baseline 1.5 10 Second Contraction 3.9 Relaxation Fair Holding Fair Stability of Hold Fair SEMG Stability of Rest Fair Contraction Ability Voluntary Contraction Weak Voluntary Relaxation Weak Manual Muscle Testing Left 2 Manual Muscle Testing Right 1 Manual Muscle Testing Anterior 2 Manual Muscle Testing Posterior 2 Muscle Endurance (Seconds) 5 Comments Pelvic Floor Comments on EMG biofeedback 3.9 uv average and 10.7 uv max good healing of the vulvar region and labia with skin inpection, able to pull up and in from the perineum. Some scar tissue present at the perineum. PT-OP-L Special Tests Start: 04/01/21 10:38 Freq: Status: Active Protocol: Document 04/01/21 10:30 [facility] (Rec: 04/05/21 13:50 [facility] [id number]) Special Tests Other Special Tests Special Tests + ASLR on the left for right sided SI instability PT-OP-M Strength Start: 04/01/21 10:38 Freq: Status: Active Protocol: Document 04/01/21 10:30 [facility] (Rec: 04/05/21 13:50 [facility] [id number]) Trunk Strength Trunk Manual Muscle Testing Testing Position Supine Flexion 3 Fair Core Stabilization decreased activation of the Transverse abdominal muscle PT-OP-Q Treatments Start: 04/08/21 10:56 Freq: Status: Active Protocol: Document 04/08/21 10:30 [facility] (Rec: 04/08/21 11:03 [facility] [id number]) Therapeutic Exercises Supine Exercises 1/2 foam roll stretches Reps/Minutes spent 5 min on the foam roll in different positions to open up the chest Comments Left greater than right side tightness pelvic floor long holds Reps/Minutes 10 reps holding x 10 seconds Comments average 12 and max 23 bridges with pelvic tilt Reps/Minutes x 10 reps TA with marches Reps/Minutes x 10 reps Other Exercises cat cow, sidebends, thoracic rotation Reps/Minutes x 10 reps each quadruped TA with arm lifts Reps/Minutes x 10 reps each PT-OP-T Assessment and Plan Start: 04/01/21 10:34 Freq: Status: Active Protocol: Document 04/08/21 10:30 [facility] (Rec: 04/08/21 11:27 [facility] [id number]) Physical Therapy Assessment Assessment Summary Assessment Cris was able to tolerate adding on to dynamic stabilization today. I also noticed that her thoracic spine was stiff in the quadruped position so we added in foam roll stretching. Cris will use her rolled up yoga mat at home for stretching Physical Therapy Plan Frequency and Duration Frequency of Treatment 1x/Week Duration of Treatment 12 Plan of Care Start Date 04/01/21 Plan of Care End Date 05/27/21 Therapeutic Interventions Therapeutic Interventions Home Exercise Program,Manual Therapy,Neuromuscular Re- education,Patient/Caregiver Education,Self-Care/Home Management,Soft Tissue Mobilization,Therapeutic Exercises Modalities Biofeedback Next Visit Focus/Plan Next Note Type Treatment Note Next Visit Plan EMG biofeedback for pelvic floor strengthening and endurance training, core stabilization exercises and SI stabilization exercises.
--- NOTE | 2021-04-15 11:27 | PT.OTN ---
Current Diagnoses Umbilical hernia without obstruction or gangrene (04/15/21) Separation of muscle (nontraumatic), other site (04/15/21) Sprain of other parts of lumbar spine and pelvis, initial encounter (04/15/21) Physical Therapy Treatment Note PT-OP-A Visit Information Start: 04/01/21 10:34 Freq: Status: Active Protocol: Document 04/15/21 10:31 [facility] (Rec: 04/15/21 11:27 [facility] [id number]) Out-Patient Physical Therapy Visit Information Visit Information Visit Type Treatment Note Visit Start Time 10:30 Visit Stop Time 11:15 Total Visit Minutes 45 Visit Number 3 PT-OP-B Current Condition Start: 04/01/21 10:34 Freq: Status: Active Protocol: Document 04/01/21 10:30 [facility] (Rec: 04/01/21 10:44 [facility] [id number]) Current Condition History of Current Condition Onset Date with Current Complaints core and pelvic floor weakness, frequency of urination History of Current Condition pt is 2 months , she noticies that every time she gets up to feed her baby at night she has to void. She hasn't moved much overall but feels a sense of weakness in general. Even during the day she is voiding more frequently . She had a perineal tear and internal stiches. She is doing really well with her SI joint but when carrying her baby she notes her right side is alot stonger and left side is weak. The abdominal hernia doesn't seem as bad as she was worried it would be. Treatment Goals Patient/Caregiver Goals pts treatment goals include increasing core strength and stability for her SI joint and pelvic floor Prior Functional Status Baseline Function- ADL's Independent Baseline Function- Mobility Independent Baseline Function- Recreation/Hobbies pt was limited with exercise and gait distance during due to SI pain. Current Functional Impairments (Reported) Functional Limitations- Mobility/Gait limited in endurance and feels weak with mobility and gait at 2 months PT-OP-C Subjective Start: 04/01/21 10:34 Freq: Status: Active Protocol: Document 04/15/21 10:31 [facility] (Rec: 04/15/21 11:27 [facility] [id number]) OP-PT Subjective Patient Comments Patient Comments Had mastitis this past week but now has antibiotics. She wasn't able to do much this past week. Minor complaints of SI pain. Carrying things she feels weak. 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 PT-OP-I Pelvic Floor Start: 04/01/21 10:38 Freq: Status: Active Protocol: Document 04/01/21 10:30 [facility] (Rec: 04/05/21 13:50 [facility] [id number]) Pelvic Floor Assessment Urine Pelvic Floor Surgery No Urinary Symptoms Urge Sensation Other Urinary Symptoms urinary frequency Leakage Cause Exercise Nocturia 1-2 Pelvic Clock Pelvic Clock 12-3 Atrophy Pelvic Clock 3-6 Atrophy Pelvic Clock 6-9 Atrophy,Tenderness Pelvic Clock 9-12 Atrophy Pelvic Clock Other right lateral wall tender to palpation with internal stitches felt Prolapse Cystocele Grade 1 Rectocele Grade 1 Perineal Descent Resting Absent Bearing Present SEMG (uV) Baseline 1.5 10 Second Contraction 3.9 Relaxation Fair Holding Fair Stability of Hold Fair SEMG Stability of Rest Fair Contraction Ability Voluntary Contraction Weak Voluntary Relaxation Weak Manual Muscle Testing Left 2 Manual Muscle Testing Right 1 Manual Muscle Testing Anterior 2 Manual Muscle Testing Posterior 2 Muscle Endurance (Seconds) 5 Comments Pelvic Floor Comments on EMG biofeedback 3.9 uv average and 10.7 uv max good healing of the vulvar region and labia with skin inpection, able to pull up and in from the perineum. Some scar tissue present at the perineum. PT-OP-L Special Tests Start: 04/01/21 10:38 Freq: Status: Active Protocol: Document 04/01/21 10:30 [facility] (Rec: 04/05/21 13:50 [facility] [id number]) Special Tests Other Special Tests Special Tests + ASLR on the left for right sided SI instability PT-OP-M Strength Start: 04/01/21 10:38 Freq: Status: Active Protocol: Document 04/01/21 10:30 [facility] (Rec: 04/05/21 13:50 [facility] [id number]) Trunk Strength Trunk Manual Muscle Testing Testing Position Supine Flexion 3 Fair Core Stabilization decreased activation of the Transverse abdominal muscle PT-OP-Q Treatments Start: 04/08/21 10:56 Freq: Status: Active Protocol: Document 04/15/21 10:31 [facility] (Rec: 04/15/21 11:27 [facility] [id number]) Therapeutic Exercises Supine Exercises ball squueze with pelvic floor Supine Exercise Name ball squeeze with pelvic floor activation Reps/Minutes x 10 reps Comments this really helped recruit the anterior pelvic floor bridges with theraband for ER Reps/Minutes x 20 reps Lower abdominal progression level 1 b Reps/Minutes x 10 each side 1/2 foam roll stretches Reps/Minutes spent 5 min on the foam roll in different positions to open up the chest Comments Left greater than right side tightness pelvic floor long holds Reps/Minutes x 10 Comments average 7.2 max 12.4 TA with marches Reps/Minutes x 10 reps Sidelying Exercises clam shells Reps/Minutes 3 x10 reps Other Exercises Thread the needle Reps/Minutes x 10 each cat cow, sidebends, thoracic rotation Reps/Minutes x 10 reps each PT-OP-T Assessment and Plan Start: 04/01/21 10:34 Freq: Status: Active Protocol: Document 04/15/21 10:31 [facility] (Rec: 04/15/21 11:27 [facility] [id number]) Physical Therapy Assessment Assessment Summary Assessment Cris may benefit from NMES for her pelvic floor. I did add in supine ball squeeze with her pelvic floor contraction and this helped her to feel the anterior levator ani and perineum. TA stability is improving. I did try TA with SLR today and this aggravated Cris's pubic bone so we will hold off on that and focus on shorter lever arm for her exercises. Physical Therapy Plan Frequency and Duration Frequency of Treatment 1x/Week Duration of Treatment 12 Plan of Care Start Date 04/01/21 Plan of Care End Date 05/27/21 Therapeutic Interventions Therapeutic Interventions Home Exercise Program,Manual Therapy,Neuromuscular Re- education,Patient/Caregiver Education,Self-Care/Home Management,Soft Tissue Mobilization,Therapeutic Exercises Modalities Biofeedback Next Visit Focus/Plan Next Note Type Treatment Note Next Visit Plan EMG biofeedback for pelvic floor strengthening and endurance training, core stabilization exercises and SI stabilization exercises.
--- NOTE | 2021-04-23 13:22 | PT.OTN ---
Current Diagnoses Umbilical hernia without obstruction or gangrene (04/22/21) Separation of muscle (nontraumatic), other site (04/22/21) Sprain of other parts of lumbar spine and pelvis, initial encounter (04/22/21) Physical Therapy Treatment Note PT-OP-A Visit Information Start: 04/01/21 10:34 Freq: Status: Active Protocol: Document 04/22/21 10:35 [facility] (Rec: 04/22/21 11:07 [facility] [id number]) Out-Patient Physical Therapy Visit Information Visit Information Visit Type Treatment Note Visit Start Time 10:35 Visit Stop Time 11:20 Total Visit Minutes 45 Visit Number 4 PT-OP-B Current Condition Start: 04/01/21 10:34 Freq: Status: Active Protocol: Document 04/01/21 10:30 [facility] (Rec: 04/01/21 10:44 [facility] [id number]) Current Condition History of Current Condition Onset Date with Current Complaints core and pelvic floor weakness, frequency of urination History of Current Condition pt is 2 months , she noticies that every time she gets up to feed her baby at night she has to void. She hasn't moved much overall but feels a sense of weakness in general. Even during the day she is voiding more frequently . She had a perineal tear and internal stiches. She is doing really well with her SI joint but when carrying her baby she notes her right side is alot stonger and left side is weak. The abdominal hernia doesn't seem as bad as she was worried it would be. Treatment Goals Patient/Caregiver Goals pts treatment goals include increasing core strength and stability for her SI joint and pelvic floor Prior Functional Status Baseline Function- ADL's Independent Baseline Function- Mobility Independent Baseline Function- Recreation/Hobbies pt was limited with exercise and gait distance during due to SI pain. Current Functional Impairments (Reported) Functional Limitations- Mobility/Gait limited in endurance and feels weak with mobility and gait at 2 months PT-OP-C Subjective Start: 04/01/21 10:34 Freq: Status: Active Protocol: Document 04/22/21 10:35 [facility] (Rec: 04/22/21 11:05 [facility] [id number]) OP-PT Subjective Patient Comments Patient Comments [place] and was walking through water she felt more instability in her SI joint. 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 PT-OP-I Pelvic Floor Start: 04/01/21 10:38 Freq: Status: Active Protocol: Document 04/01/21 10:30 [facility] (Rec: 04/05/21 13:50 [facility] [id number]) Pelvic Floor Assessment Urine Pelvic Floor Surgery No Urinary Symptoms Urge Sensation Other Urinary Symptoms urinary frequency Leakage Cause Exercise Nocturia 1-2 Pelvic Clock Pelvic Clock 12-3 Atrophy Pelvic Clock 3-6 Atrophy Pelvic Clock 6-9 Atrophy,Tenderness Pelvic Clock 9-12 Atrophy Pelvic Clock Other right lateral wall tender to palpation with internal stitches felt Prolapse Cystocele Grade 1 Rectocele Grade 1 Perineal Descent Resting Absent Bearing Present SEMG (uV) Baseline 1.5 10 Second Contraction 3.9 Relaxation Fair Holding Fair Stability of Hold Fair SEMG Stability of Rest Fair Contraction Ability Voluntary Contraction Weak Voluntary Relaxation Weak Manual Muscle Testing Left 2 Manual Muscle Testing Right 1 Manual Muscle Testing Anterior 2 Manual Muscle Testing Posterior 2 Muscle Endurance (Seconds) 5 Comments Pelvic Floor Comments on EMG biofeedback 3.9 uv average and 10.7 uv max good healing of the vulvar region and labia with skin inpection, able to pull up and in from the perineum. Some scar tissue present at the perineum. PT-OP-L Special Tests Start: 04/01/21 10:38 Freq: Status: Active Protocol: Document 04/01/21 10:30 [facility] (Rec: 04/05/21 13:50 [facility] [id number]) Special Tests Other Special Tests Special Tests + ASLR on the left for right sided SI instability PT-OP-M Strength Start: 04/01/21 10:38 Freq: Status: Active Protocol: Document 04/01/21 10:30 [facility] (Rec: 04/05/21 13:50 [facility] [id number]) Trunk Strength Trunk Manual Muscle Testing Testing Position Supine Flexion 3 Fair Core Stabilization decreased activation of the Transverse abdominal muscle PT-OP-Q Treatments Start: 04/08/21 10:56 Freq: Status: Active Protocol: Document 04/22/21 10:35 [facility] (Rec: 04/22/21 11:05 [facility] [id number]) Therapeutic Exercises Supine Exercises quick flicks Reps/Minutes x10 hip Er with theraband Reps/Minutes 3 x 10 reps 1/2 foam roll stretches Reps/Minutes spent 5 min on the foam roll in different positions to open up the chest Comments Left greater than right side tightness pelvic floor long holds Reps/Minutes x 10 reps Comments average of 11.5 uv and max 25. 8 PT-OP-T Assessment and Plan Start: 04/01/21 10:34 Freq: Status: Active Protocol: Document 04/22/21 10:35 [facility] (Rec: 04/23/21 13:22 [facility] [id number]) Physical Therapy Assessment Assessment Summary Assessment Cris was better able to feel her pelvic floor today, she does do better with the ball squeeze and her pelvic floor strength is improving Physical Therapy Plan Frequency and Duration Frequency of Treatment 1x/Week Duration of Treatment 12 Plan of Care Start Date 04/01/21 Plan of Care End Date 05/27/21 Therapeutic Interventions Therapeutic Interventions Home Exercise Program,Manual Therapy,Neuromuscular Re- education,Patient/Caregiver Education,Self-Care/Home Management,Soft Tissue Mobilization,Therapeutic Exercises Modalities Biofeedback Next Visit Focus/Plan Next Note Type Treatment Note Next Visit Plan EMG biofeedback for pelvic floor strengthening and endurance training, core stabilization exercises and SI stabilization exercises.
--- NOTE | 2021-04-29 13:09 | PT.OTN ---
Current Diagnoses Umbilical hernia without obstruction or gangrene (04/29/21) Separation of muscle (nontraumatic), other site (04/29/21) Sprain of other parts of lumbar spine and pelvis, initial encounter (04/29/21) Physical Therapy Treatment Note PT-OP-A Visit Information Start: 04/01/21 10:34 Freq: Status: Active Protocol: Document 04/29/21 11:20 [facility] (Rec: 04/29/21 12:06 [facility] [id number]) Out-Patient Physical Therapy Visit Information Visit Information Visit Type Treatment Note Visit Start Time 11:20 Visit Stop Time 12:00 Total Visit Minutes 40 PT-OP-B Current Condition Start: 04/01/21 10:34 Freq: Status: Active Protocol: Document 04/01/21 10:30 [facility] (Rec: 04/01/21 10:44 [facility] [id number]) Current Condition History of Current Condition Onset Date with Current Complaints core and pelvic floor weakness, frequency of urination History of Current Condition pt is 2 months , she noticies that every time she gets up to feed her baby at night she has to void. She hasn't moved much overall but feels a sense of weakness in general. Even during the day she is voiding more frequently . She had a perineal tear and internal stiches. She is doing really well with her SI joint but when carrying her baby she notes her right side is alot stonger and left side is weak. The abdominal hernia doesn't seem as bad as she was worried it would be. Treatment Goals Patient/Caregiver Goals pts treatment goals include increasing core strength and stability for her SI joint and pelvic floor Prior Functional Status Baseline Function- ADL's Independent Baseline Function- Mobility Independent Baseline Function- Recreation/Hobbies pt was limited with exercise and gait distance during due to SI pain. Current Functional Impairments (Reported) Functional Limitations- Mobility/Gait limited in endurance and feels weak with mobility and gait at 2 months PT-OP-C Subjective Start: 04/01/21 10:34 Freq: Status: Active Protocol: Document 04/29/21 11:20 [facility] (Rec: 04/29/21 12:06 [facility] [id number]) OP-PT Subjective Patient Comments Patient Comments pt saw the surgeon Dr Leach about the lymphoma and the surgeon felt that she didn't need it removed. She will also be getting a PCP and will follow up with them about the lymphoma. The bridges with the band seemed to bother her pubic symphysis. 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 PT-OP-I Pelvic Floor Start: 04/01/21 10:38 Freq: Status: Active Protocol: Document 04/01/21 10:30 [facility] (Rec: 04/05/21 13:50 [facility] [id number]) Pelvic Floor Assessment Urine Pelvic Floor Surgery No Urinary Symptoms Urge Sensation Other Urinary Symptoms urinary frequency Leakage Cause Exercise Nocturia 1-2 Pelvic Clock Pelvic Clock 12-3 Atrophy Pelvic Clock 3-6 Atrophy Pelvic Clock 6-9 Atrophy,Tenderness Pelvic Clock 9-12 Atrophy Pelvic Clock Other right lateral wall tender to palpation with internal stitches felt Prolapse Cystocele Grade 1 Rectocele Grade 1 Perineal Descent Resting Absent Bearing Present SEMG (uV) Baseline 1.5 10 Second Contraction 3.9 Relaxation Fair Holding Fair Stability of Hold Fair SEMG Stability of Rest Fair Contraction Ability Voluntary Contraction Weak Voluntary Relaxation Weak Manual Muscle Testing Left 2 Manual Muscle Testing Right 1 Manual Muscle Testing Anterior 2 Manual Muscle Testing Posterior 2 Muscle Endurance (Seconds) 5 Comments Pelvic Floor Comments on EMG biofeedback 3.9 uv average and 10.7 uv max good healing of the vulvar region and labia with skin inpection, able to pull up and in from the perineum. Some scar tissue present at the perineum. PT-OP-L Special Tests Start: 04/01/21 10:38 Freq: Status: Active Protocol: Document 04/01/21 10:30 [facility] (Rec: 04/05/21 13:50 [facility] [id number]) Special Tests Other Special Tests Special Tests + ASLR on the left for right sided SI instability PT-OP-M Strength Start: 04/01/21 10:38 Freq: Status: Active Protocol: Document 04/01/21 10:30 [facility] (Rec: 04/05/21 13:50 [facility] [id number]) Trunk Strength Trunk Manual Muscle Testing Testing Position Supine Flexion 3 Fair Core Stabilization decreased activation of the Transverse abdominal muscle PT-OP-Q Treatments Start: 04/08/21 10:56 Freq: Status: Active Protocol: Document 04/29/21 11:20 [facility] (Rec: 04/29/21 12:06 [facility] [id number]) Therapeutic Exercises Supine Exercises LA progression level 1b Reps/Minutes x 20 reps quick flicks Reps/Minutes 20 reps pelvic floor long holds Comments 14 average and max 23 TA with marches Reps/Minutes x 10 Sidelying Exercises clam shells Reps/Minutes 2 x 10 reps Other Exercises TA with leg lifts Reps/Minutes x 10 reps each Thread the needle Reps/Minutes x 10 each cat cow, sidebends, thoracic rotation Reps/Minutes x 10 reps each quadruped TA with arm lifts Reps/Minutes x 10 reps each PT-OP-T Assessment and Plan Start: 04/01/21 10:34 Freq: Status: Active Protocol: Document 04/29/21 11:20 [facility] (Rec: 04/29/21 13:09 [facility] [id number]) Physical Therapy Assessment Assessment Summary Assessment Cris has improved her pelvic floor strength and endurance on EMG biofeedback, she has had a few times that she could feel her pubic bone with exercises so we have modified these for her to avoid undue strain to the pubic symphysis. I did add in TA with abdominal crunch today with good success and no abdominal pain Physical Therapy Plan Frequency and Duration Frequency of Treatment 1x/Week Duration of Treatment 12 Plan of Care Start Date 04/01/21 Plan of Care End Date 05/27/21 Therapeutic Interventions Therapeutic Interventions Home Exercise Program,Manual Therapy,Neuromuscular Re- education,Patient/Caregiver Education,Self-Care/Home Management,Soft Tissue Mobilization,Therapeutic Exercises Modalities Biofeedback Next Visit Focus/Plan Next Note Type Treatment Note Next Visit Plan EMG biofeedback for pelvic floor strengthening and endurance training, core stabilization exercises and SI stabilization exercises. Recheck abdominal crunches next visit
--- NOTE | 2021-05-06 11:16 | PT.OTN ---
Current Diagnoses Umbilical hernia without obstruction or gangrene (05/06/21) Separation of muscle (nontraumatic), other site (05/06/21) Sprain of other parts of lumbar spine and pelvis, initial encounter (05/06/21) Physical Therapy Treatment Note PT-OP-A Visit Information Start: 04/01/21 10:34 Freq: Status: Active Protocol: Document 05/06/21 10:32 [facility] (Rec: 05/06/21 10:46 [facility] [id number]) Out-Patient Physical Therapy Visit Information Visit Information Visit Type Treatment Note Visit Start Time 10:32 Visit Stop Time 11:15 Total Visit Minutes 43 Visit Number 6 PT-OP-B Current Condition Start: 04/01/21 10:34 Freq: Status: Active Protocol: Document 04/01/21 10:30 [facility] (Rec: 04/01/21 10:44 [facility] [id number]) Current Condition History of Current Condition Onset Date with Current Complaints core and pelvic floor weakness, frequency of urination History of Current Condition pt is 2 months , she noticies that every time she gets up to feed her baby at night she has to void. She hasn't moved much overall but feels a sense of weakness in general. Even during the day she is voiding more frequently . She had a perineal tear and internal stiches. She is doing really well with her SI joint but when carrying her baby she notes her right side is alot stonger and left side is weak. The abdominal hernia doesn't seem as bad as she was worried it would be. Treatment Goals Patient/Caregiver Goals pts treatment goals include increasing core strength and stability for her SI joint and pelvic floor Prior Functional Status Baseline Function- ADL's Independent Baseline Function- Mobility Independent Baseline Function- Recreation/Hobbies pt was limited with exercise and gait distance during due to SI pain. Current Functional Impairments (Reported) Functional Limitations- Mobility/Gait limited in endurance and feels weak with mobility and gait at 2 months PT-OP-C Subjective Start: 04/01/21 10:34 Freq: Status: Active Protocol: Document 05/06/21 10:32 [facility] (Rec: 05/06/21 10:46 [facility] [id number]) OP-PT Subjective Patient Comments Patient Comments pt notes she was able to use the band for her hip exercises and it seemed okay, pt willbe traveling to see her grandma in the next few weeks and will be flying to the [facility]. She will bring her baby and has questions regarding her baby carrier. 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 PT-OP-I Pelvic Floor Start: 04/01/21 10:38 Freq: Status: Active Protocol: Document 04/01/21 10:30 [facility] (Rec: 04/05/21 13:50 [facility] [id number]) Pelvic Floor Assessment Urine Pelvic Floor Surgery No Urinary Symptoms Urge Sensation Other Urinary Symptoms urinary frequency Leakage Cause Exercise Nocturia 1-2 Pelvic Clock Pelvic Clock 12-3 Atrophy Pelvic Clock 3-6 Atrophy Pelvic Clock 6-9 Atrophy,Tenderness Pelvic Clock 9-12 Atrophy Pelvic Clock Other right lateral wall tender to palpation with internal stitches felt Prolapse Cystocele Grade 1 Rectocele Grade 1 Perineal Descent Resting Absent Bearing Present SEMG (uV) Baseline 1.5 10 Second Contraction 3.9 Relaxation Fair Holding Fair Stability of Hold Fair SEMG Stability of Rest Fair Contraction Ability Voluntary Contraction Weak Voluntary Relaxation Weak Manual Muscle Testing Left 2 Manual Muscle Testing Right 1 Manual Muscle Testing Anterior 2 Manual Muscle Testing Posterior 2 Muscle Endurance (Seconds) 5 Comments Pelvic Floor Comments on EMG biofeedback 3.9 uv average and 10.7 uv max good healing of the vulvar region and labia with skin inpection, able to pull up and in from the perineum. Some scar tissue present at the perineum. PT-OP-L Special Tests Start: 04/01/21 10:38 Freq: Status: Active Protocol: Document 04/01/21 10:30 [facility] (Rec: 04/05/21 13:50 [facility] [id number]) Special Tests Other Special Tests Special Tests + ASLR on the left for right sided SI instability PT-OP-M Strength Start: 04/01/21 10:38 Freq: Status: Active Protocol: Document 04/01/21 10:30 [facility] (Rec: 04/05/21 13:50 [facility] [id number]) Trunk Strength Trunk Manual Muscle Testing Testing Position Supine Flexion 3 Fair Core Stabilization decreased activation of the Transverse abdominal muscle PT-OP-Q Treatments Start: 04/08/21 10:56 Freq: Status: Active Protocol: Document 05/06/21 10:32 [facility] (Rec: 05/06/21 11:15 [facility] [id number]) Therapeutic Exercises Supine Exercises templates for coordination Reps/Minutes x 5 min LA progression level 1b Reps/Minutes x 20 reps quick flicks Reps/Minutes 20 reps ball squueze with pelvic floor Reps/Minutes x 15 bridges with theraband for ER Reps/Minutes x 20 pelvic floor long holds Reps/Minutes x 10 Comments 11.7 average and max 23 TA with marches Reps/Minutes x 10 PT-OP-T Assessment and Plan Start: 04/01/21 10:34 Freq: Status: Active Protocol: Document 05/06/21 10:32 [facility] (Rec: 05/07/21 11:14 [facility] [id number]) Physical Therapy Assessment Assessment Summary Assessment Cris is doing better overall with pelvic floor and core recruitemnt. Added in templates for eccentric control and coordination and these were more challenging for her. Physical Therapy Plan Frequency and Duration Frequency of Treatment 1x/Week Duration of Treatment 12 Plan of Care Start Date 04/01/21 Plan of Care End Date 05/27/21 Therapeutic Interventions Therapeutic Interventions Home Exercise Program,Manual Therapy,Neuromuscular Re- education,Patient/Caregiver Education,Self-Care/Home Management,Soft Tissue Mobilization,Therapeutic Exercises Modalities Biofeedback Next Visit Focus/Plan Next Note Type Treatment Note Next Visit Plan EMG biofeedback for pelvic floor strengthening and endurance training, core stabilization exercises and SI stabilization exercises. Recheck abdominal crunches next visit
--- NOTE | 2021-05-13 13:21 | PT.OTN ---
Current Diagnoses Umbilical hernia without obstruction or gangrene (05/13/21) Separation of muscle (nontraumatic), other site (05/13/21) Sprain of other parts of lumbar spine and pelvis, initial encounter (05/13/21) Physical Therapy Treatment Note PT-OP-A Visit Information Start: 04/01/21 10:34 Freq: Status: Active Protocol: Document 05/13/21 11:18 [facility] (Rec: 05/13/21 13:17 [facility] [id number]) Out-Patient Physical Therapy Visit Information Visit Information Visit Type Treatment Note Visit Start Time 11:20 Visit Stop Time 12:00 Total Visit Minutes 40 Visit Number 7 PT-OP-B Current Condition Start: 04/01/21 10:34 Freq: Status: Active Protocol: Document 04/01/21 10:30 [facility] (Rec: 04/01/21 10:44 [facility] [id number]) Current Condition History of Current Condition Onset Date with Current Complaints core and pelvic floor weakness, frequency of urination History of Current Condition pt is 2 months , she noticies that every time she gets up to feed her baby at night she has to void. She hasn't moved much overall but feels a sense of weakness in general. Even during the day she is voiding more frequently . She had a perineal tear and internal stiches. She is doing really well with her SI joint but when carrying her baby she notes her right side is alot stonger and left side is weak. The abdominal hernia doesn't seem as bad as she was worried it would be. Treatment Goals Patient/Caregiver Goals pts treatment goals include increasing core strength and stability for her SI joint and pelvic floor Prior Functional Status Baseline Function- ADL's Independent Baseline Function- Mobility Independent Baseline Function- Recreation/Hobbies pt was limited with exercise and gait distance during due to SI pain. Current Functional Impairments (Reported) Functional Limitations- Mobility/Gait limited in endurance and feels weak with mobility and gait at 2 months PT-OP-C Subjective Start: 04/01/21 10:34 Freq: Status: Active Protocol: Document 05/13/21 11:18 [facility] (Rec: 05/13/21 13:17 [facility] [id number]) OP-PT Subjective Patient Comments Patient Comments pt reports she was able to do her exercises a lot PT-OP-F Manual Assessment Start: 04/01/21 10:34 Freq: Status: Active Protocol: Document 04/01/21 10:30 [facility] (Rec: 04/05/21 13:50 [facility] [id number]) Manual Assessments Soft Tissue Assessment Soft Tissue Mobility Assessment abdominal diastasis: 2 finger width diastasis at the umbilicus no bulging present with head lift Joint Mobility Assessment Joint Mobility Assessment + 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 PT-OP-I Pelvic Floor Start: 04/01/21 10:38 Freq: Status: Active Protocol: Document 04/01/21 10:30 [facility] (Rec: 04/05/21 13:50 [facility] [id number]) Pelvic Floor Assessment Urine Pelvic Floor Surgery No Urinary Symptoms Urge Sensation Other Urinary Symptoms urinary frequency Leakage Cause Exercise Nocturia 1-2 Pelvic Clock Pelvic Clock 12-3 Atrophy Pelvic Clock 3-6 Atrophy Pelvic Clock 6-9 Atrophy,Tenderness Pelvic Clock 9-12 Atrophy Pelvic Clock Other right lateral wall tender to palpation with internal stitches felt Prolapse Cystocele Grade 1 Rectocele Grade 1 Perineal Descent Resting Absent Bearing Present SEMG (uV) Baseline 1.5 10 Second Contraction 3.9 Relaxation Fair Holding Fair Stability of Hold Fair SEMG Stability of Rest Fair Contraction Ability Voluntary Contraction Weak Voluntary Relaxation Weak Manual Muscle Testing Left 2 Manual Muscle Testing Right 1 Manual Muscle Testing Anterior 2 Manual Muscle Testing Posterior 2 Muscle Endurance (Seconds) 5 Comments Pelvic Floor Comments on EMG biofeedback 3.9 uv average and 10.7 uv max good healing of the vulvar region and labia with skin inpection, able to pull up and in from the perineum. Some scar tissue present at the perineum. PT-OP-L Special Tests Start: 04/01/21 10:38 Freq: Status: Active Protocol: Document 04/01/21 10:30 [facility] (Rec: 04/05/21 13:50 [facility] [id number]) Special Tests Other Special Tests Special Tests + ASLR on the left for right sided SI instability PT-OP-M Strength Start: 04/01/21 10:38 Freq: Status: Active Protocol: Document 04/01/21 10:30 [facility] (Rec: 04/05/21 13:50 [facility] [id number]) Trunk Strength Trunk Manual Muscle Testing Testing Position Supine Flexion 3 Fair Core Stabilization decreased activation of the Transverse abdominal muscle PT-OP-Q Treatments Start: 01/26/22 10:56 Freq: Status: Active Protocol: Document 05/13/21 11:18 [facility] (Rec: 05/13/21 13:17 [facility] [id number]) Therapeutic Exercises Supine Exercises crunches with ball squeeze Reps/Minutes x 10 reps Other Exercises reverse curl Reps/Minutes x 10 reps rolling like a ball Reps/Minutes x 10 the hundred Reps/Minutes x 100 quadruped TA with arm lifts Other Exercise Name added in OPP arm and leg Reps/Minutes x 5 reps each side PT-OP-T Assessment and Plan Start: 04/01/21 10:34 Freq: Status: Active Protocol: Document 05/13/21 11:18 [facility] (Rec: 05/13/21 13:17 [facility] [id number]) Physical Therapy Assessment Assessment Summary Assessment Cris reported feeling that some of her exercises were becomming easy for her so we reviewed exercises today and progressed her. She is doing really well with her stabilization but still needs some cues to engage her inner core prior to outer abdominal muscle activation. We did attempt a plank however this caused a strain to the pubic symphysis as did level 3 LA progression Physical Therapy Plan Frequency and Duration Frequency of Treatment 1x/Week Duration of Treatment 12 Plan of Care Start Date 04/01/21 Plan of Care End Date 05/27/21 Therapeutic Interventions Therapeutic Interventions Home Exercise Program,Manual Therapy,Neuromuscular Re- education,Patient/Caregiver Education,Self-Care/Home Management,Soft Tissue Mobilization,Therapeutic Exercises Modalities Biofeedback Next Visit Focus/Plan Next Note Type Progress Note Next Visit Plan review new stabilization exercises next visit
--- NOTE | 2021-05-20 13:57 | PT.OTN ---
Current Diagnoses Umbilical hernia without obstruction or gangrene (05/20/21) Separation of muscle (nontraumatic), other site (05/20/21) Sprain of other parts of lumbar spine and pelvis, initial encounter (05/20/21) Physical Therapy Treatment Note PT-OP-A Visit Information Start: 04/01/21 10:34 Freq: Status: Active Protocol: Document 05/20/21 10:44 [facility] (Rec: 05/20/21 13:57 [facility] [id number]) Out-Patient Physical Therapy Visit Information Visit Information Visit Type Progress Note Visit Start Time 10:35 Visit Stop Time 11:20 Total Visit Minutes 45 Visit Number 8 PT-OP-B Current Condition Start: 04/01/21 10:34 Freq: Status: Active Protocol: Document 04/01/21 10:30 [facility] (Rec: 04/01/21 10:44 [facility] [id number]) Current Condition History of Current Condition Onset Date with Current Complaints core and pelvic floor weakness, frequency of urination History of Current Condition pt is 2 months , she noticies that every time she gets up to feed her baby at night she has to void. She hasn't moved much overall but feels a sense of weakness in general. Even during the day she is voiding more frequently . She had a perineal tear and internal stiches. She is doing really well with her SI joint but when carrying her baby she notes her right side is alot stonger and left side is weak. The abdominal hernia doesn't seem as bad as she was worried it would be. Treatment Goals Patient/Caregiver Goals pts treatment goals include increasing core strength and stability for her SI joint and pelvic floor Prior Functional Status Baseline Function- ADL's Independent Baseline Function- Mobility Independent Baseline Function- Recreation/Hobbies pt was limited with exercise and gait distance during due to SI pain. Current Functional Impairments (Reported) Functional Limitations- Mobility/Gait limited in endurance and feels weak with mobility and gait at 2 months PT-OP-C Subjective Start: 04/01/21 10:34 Freq: Status: Active Protocol: Document 05/20/21 10:44 [facility] (Rec: 05/20/21 13:57 [facility] [id number]) OP-PT Subjective Patient Comments Patient Comments pt reports she is doing well with her exercises, she has questions on some of them and would like to go through them PT-OP-F Manual Assessment Start: 04/01/21 10:34 Freq: Status: Active Protocol: Document 04/01/21 10:30 [facility] (Rec: 04/05/21 13:50 [facility] [id number]) Manual Assessments Soft Tissue Assessment Soft Tissue Mobility Assessment abdominal diastasis: 2 finger width diastasis at the umbilicus no bulging present with head lift Joint Mobility Assessment Joint Mobility Assessment + 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 PT-OP-I Pelvic Floor Start: 04/01/21 10:38 Freq: Status: Active Protocol: Document 04/01/21 10:30 [facility] (Rec: 04/05/21 13:50 [facility] [id number]) Pelvic Floor Assessment Urine Pelvic Floor Surgery No Urinary Symptoms Urge Sensation Other Urinary Symptoms urinary frequency Leakage Cause Exercise Nocturia 1-2 Pelvic Clock Pelvic Clock 12-3 Atrophy Pelvic Clock 3-6 Atrophy Pelvic Clock 6-9 Atrophy,Tenderness Pelvic Clock 9-12 Atrophy Pelvic Clock Other right lateral wall tender to palpation with internal stitches felt Prolapse Cystocele Grade 1 Rectocele Grade 1 Perineal Descent Resting Absent Bearing Present SEMG (uV) Baseline 1.5 10 Second Contraction 3.9 Relaxation Fair Holding Fair Stability of Hold Fair SEMG Stability of Rest Fair Contraction Ability Voluntary Contraction Weak Voluntary Relaxation Weak Manual Muscle Testing Left 2 Manual Muscle Testing Right 1 Manual Muscle Testing Anterior 2 Manual Muscle Testing Posterior 2 Muscle Endurance (Seconds) 5 Comments Pelvic Floor Comments on EMG biofeedback 3.9 uv average and 10.7 uv max good healing of the vulvar region and labia with skin inpection, able to pull up and in from the perineum. Some scar tissue present at the perineum. PT-OP-L Special Tests Start: 04/01/21 10:38 Freq: Status: Active Protocol: Document 04/01/21 10:30 [facility] (Rec: 04/05/21 13:50 [facility] [id number]) Special Tests Other Special Tests Special Tests + ASLR on the left for right sided SI instability PT-OP-M Strength Start: 04/01/21 10:38 Freq: Status: Active Protocol: Document 04/01/21 10:30 [facility] (Rec: 04/05/21 13:50 [facility] [id number]) Trunk Strength Trunk Manual Muscle Testing Testing Position Supine Flexion 3 Fair Core Stabilization decreased activation of the Transverse abdominal muscle PT-OP-Q Treatments Start: 04/08/21 10:56 Freq: Status: Active Protocol: Document 05/20/21 10:44 [facility] (Rec: 05/20/21 13:57 [facility] [id number]) Therapeutic Exercises Supine Exercises crunches with ball squeeze Reps/Minutes x 10 reps ball squueze with pelvic floor Reps/Minutes x 15 Lower abdominal progression level 1 b Reps/Minutes x 10 each side Comments worked on heel slides as well x 10 reps bridges with pelvic tilt Reps/Minutes x 10 reps TA with marches Reps/Minutes x 10 Other Exercises squats with TA engaged Reps/Minutes x 10 Comments pt held her baby for weight with squats reverse curl Reps/Minutes x 10 reps rolling like a ball Reps/Minutes x 10 the hundred Reps/Minutes x 100 TA with leg lifts Reps/Minutes x 10 reps each Thread the needle Reps/Minutes x 10 each cat cow, sidebends, thoracic rotation Reps/Minutes x 10 reps each quadruped TA with arm lifts Other Exercise Name added in OPP arm and leg Reps/Minutes x 5 reps each side PT-OP-T Assessment and Plan Start: 04/01/21 10:34 Freq: Status: Active Protocol: Document 05/20/21 10:44 [facility] (Rec: 05/20/21 13:57 [facility] [id number]) Physical Therapy Assessment Goals 3 Impairment Decreased endurance of the pelvic floor Optometrist/Practice Owner Goal (LTG) Cris is able to sustain a pelvic floor contraction x 10 seconds in standing and supine for improved functional support of her pelvic organs GOAL MET LTG Duration 8 weeks 2 Impairment Abdominal diastasis and core weakness Short Term Goal (STG) Cris is able to activate her transverse abdominal musculature and sustain a contraction x 10 seconds Goal met STG Duration 3 weeks Optometrist/Practice Owner Goal (LTG) Cris demonstrates improved core strength including the ability to curl up without abdominal separation Good progress LTG Duration 8 weeks 1 Impairment pelvic floor weakness Short Term Goal (STG) Cris is able to increase her MMT(from 1/5 on the right and 2/5 all others) by one muscle grade for improved support of her bladder Goal met STG Duration 4 weeks Group Home Goal (LTG) Cris is able to improve her pelvic floor muscle strength to 4/5 MMT or better for improved pelvic organ support and to be able to progress her exercise and activity level without any urinary leakage. No c/o urinary leakage and improving pelvic floor strength LTG Duration 8 weeks Progress Towards Goals Progress Towards Goals Progressing Toward Goals Progress Comments Cris is progressing well towards her goals and is showing improvements with SI stabilization. She would benefit from continued PT Assessment Summary Assessment Saray continues to progress with her core, she is stil a little tight in her lumbar paraspinals and needs cues for lumbar segmental stabilization Physical Therapy Plan Frequency and Duration Frequency of Treatment 1x/Week Duration of Treatment 12 Plan of Care Start Date 05/20/21 Plan of Care End Date 08/19/21 Therapeutic Interventions Therapeutic Interventions Home Exercise Program,Manual Therapy,Neuromuscular Re- education,Patient/Caregiver Education,Self-Care/Home Management,Soft Tissue Mobilization,Therapeutic Exercises Modalities Biofeedback Next Visit Focus/Plan Next Note Type Treatment Note Next Visit Plan continue progressing abdominal stabilization exercises
--- NOTE | 2021-05-20 13:58 | PT.OPPOC ---
Physical, Occupational & Speech Therapy At [facility] Current Diagnoses Umbilical hernia without obstruction or gangrene (05/20/21) Separation of muscle (nontraumatic), other site (05/20/21) Sprain of other parts of lumbar spine and pelvis, initial encounter (05/20/21) Visit Care Team Role Provider Type Chandler Henriquez DO Primary Care Provider Physician Specialty: Family Practice Address: [address] [place] [address] Email: [email or web address] Elsa Mary MD Attending Provider Physician Referring Provider Specialty: Gynecology SENIOR PROJECT ARCHITECT Obstetrics Address: [address] [place] [address], [address] Email: [email or web address] Plan Of Care PT-OP-T Assessment and Plan Start: 04/01/21 10:34 Freq: Status: Active Protocol: Document 05/20/21 10:44 [facility] (Rec: 05/20/21 13:57 [facility] [id number]) Physical Therapy Assessment Goals 3 Impairment Decreased endurance of the pelvic floor Prison Goal (LTG) Cris is able to sustain a pelvic floor contraction x 10 seconds in standing and supine for improved functional support of her pelvic organs GOAL MET LTG Duration 8 weeks 2 Impairment Abdominal diastasis and core weakness Short Term Goal (STG) Cris is able to activate her transverse abdominal musculature and sustain a contraction x 10 seconds Goal met STG Duration 3 weeks Hydraulic Spinner Goal (LTG) Cris demonstrates improved core strength including the ability to curl up without abdominal separation Good progress LTG Duration 8 weeks 1 Impairment pelvic floor weakness Short Term Goal (STG) Cris is able to increase her MMT(from 1/5 on the right and 2/5 all others) by one muscle grade for improved support of her bladder Goal met STG Duration 4 weeks Hydraulic Spinner Goal (LTG) Cris is able to improve her pelvic floor muscle strength to 4/5 MMT or better for improved pelvic organ support and to be able to progress her exercise and activity level without any urinary leakage. No c/o urinary leakage and improving pelvic floor strength LTG Duration 8 weeks Progress Towards Goals Progress Towards Goals Progressing Toward Goals Progress Comments Cris is progressing well towards her goals and is showing improvements with SI stabilization. She would benefit from continued PT Assessment Summary Assessment Saray continues to progress with her core, she is still a little tight in her lumbar paraspinals and needs cues for lumbar segmental stabilization Physical Therapy Plan Frequency and Duration Frequency of Treatment 1x/Week Duration of Treatment 12 Plan of Care Start Date 05/20/21 Plan of Care End Date 08/19/21 Therapeutic Interventions Therapeutic Interventions Home Exercise Program,Manual Therapy,Neuromuscular Re- education,Patient/Caregiver Education,Self-Care/Home Management,Soft Tissue Mobilization,Therapeutic Exercises Modalities Biofeedback Next Visit Focus/Plan Next Note Type Treatment Note Next Visit Plan continue progressing abdominal stabilization exercises Plan of Care Dates Plan of Care Start Date 05/20/21 Plan of Care End Date 08/19/21 Electronically Signed by: Lorenza Duke, PT 05/20/21 [id number] Please Sign and Return: I have reviewed this Plan of Care and certify that the skilled therapy services above are required to meet the patient?s needs. Physician Signature Date Printed Name and Credentials Clinical Instructor Signature Printed Name and Credentials
--- NOTE | 2021-06-03 14:06 | PT.OTN ---
Current Diagnoses Umbilical hernia without obstruction or gangrene (06/03/21) Separation of muscle (nontraumatic), other site (06/03/21) Sprain of other parts of lumbar spine and pelvis, initial encounter (06/03/21) Physical Therapy Treatment Note PT-OP-A Visit Information Start: 04/01/21 10:34 Freq: Status: Active Protocol: Document 06/03/21 10:35 [facility] (Rec: 06/03/21 11:18 [facility] [id number]) Out-Patient Physical Therapy Visit Information Visit Information Visit Type Treatment Note Visit Start Time 10:35 Visit Stop Time 11:15 Total Visit Minutes 40 Visit Number 9 PT-OP-B Current Condition Start: 04/01/21 10:34 Freq: Status: Active Protocol: Document 04/01/21 10:30 [facility] (Rec: 04/01/21 10:44 [facility] [id number]) Current Condition History of Current Condition Onset Date with Current Complaints core and pelvic floor weakness, frequency of urination History of Current Condition pt is 2 months , she noticies that every time she gets up to feed her baby at night she has to void. She hasn't moved much overall but feels a sense of weakness in general. Even during the day she is voiding more frequently . She had a perineal tear and internal stiches. She is doing really well with her SI joint but when carrying her baby she notes her right side is alot stonger and left side is weak. The abdominal hernia doesn't seem as bad as she was worried it would be. Treatment Goals Patient/Caregiver Goals pts treatment goals include increasing core strength and stability for her SI joint and pelvic floor Prior Functional Status Baseline Function- ADL's Independent Baseline Function- Mobility Independent Baseline Function- Recreation/Hobbies pt was limited with exercise and gait distance during due to SI pain. Current Functional Impairments (Reported) Functional Limitations- Mobility/Gait limited in endurance and feels weak with mobility and gait at 2 months PT-OP-C Subjective Start: 04/01/21 10:34 Freq: Status: Active Protocol: Document 06/03/21 10:35 [facility] (Rec: 06/03/21 11:18 [facility] [id number]) OP-PT Subjective Patient Comments Patient Comments PT reports her low back and SI joint felt good on the the plane. SHe notes she has been doing the exercises. She was able to do the abdominal slides and that felt better without the pubic or SI pain. 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 PT-OP-I Pelvic Floor Start: 04/01/21 10:38 Freq: Status: Active Protocol: Document 04/01/21 10:30 [facility] (Rec: 04/05/21 13:50 [facility] [id number]) Pelvic Floor Assessment Urine Pelvic Floor Surgery No Urinary Symptoms Urge Sensation Other Urinary Symptoms urinary frequency Leakage Cause Exercise Nocturia 1-2 Pelvic Clock Pelvic Clock 12-3 Atrophy Pelvic Clock 3-6 Atrophy Pelvic Clock 6-9 Atrophy,Tenderness Pelvic Clock 9-12 Atrophy Pelvic Clock Other right lateral wall tender to palpation with internal stitches felt Prolapse Cystocele Grade 1 Rectocele Grade 1 Perineal Descent Resting Absent Bearing Present SEMG (uV) Baseline 1.5 10 Second Contraction 3.9 Relaxation Fair Holding Fair Stability of Hold Fair SEMG Stability of Rest Fair Contraction Ability Voluntary Contraction Weak Voluntary Relaxation Weak Manual Muscle Testing Left 2 Manual Muscle Testing Right 1 Manual Muscle Testing Anterior 2 Manual Muscle Testing Posterior 2 Muscle Endurance (Seconds) 5 Comments Pelvic Floor Comments on EMG biofeedback 3.9 uv average and 10.7 uv max good healing of the vulvar region and labia with skin inpection, able to pull up and in from the perineum. Some scar tissue present at the perineum. PT-OP-L Special Tests Start: 04/01/21 10:38 Freq: Status: Active Protocol: Document 04/01/21 10:30 [facility] (Rec: 04/05/21 13:50 [facility] [id number]) Special Tests Other Special Tests Special Tests + ASLR on the left for right sided SI instability PT-OP-M Strength Start: 04/01/21 10:38 Freq: Status: Active Protocol: Document 04/01/21 10:30 [facility] (Rec: 04/05/21 13:50 [facility] [id number]) Trunk Strength Trunk Manual Muscle Testing Testing Position Supine Flexion 3 Fair Core Stabilization decreased activation of the Transverse abdominal muscle PT-OP-Q Treatments Start: 04/08/21 10:56 Freq: Status: Active Protocol: Document 06/03/21 10:35 [facility] (Rec: 06/03/21 14:05 [facility] [id number]) Therapeutic Exercises Supine Exercises LA progression level 1b Reps/Minutes x 20 reps Comments 1 a 1 b and level 2 ball squueze with pelvic floor Reps/Minutes x 15 bridges with pelvic tilt Reps/Minutes x 10 reps Other Exercises reverse curl Reps/Minutes x 10 reps rolling like a ball Reps/Minutes x 10 the hundred Reps/Minutes x 100 Thread the needle Reps/Minutes x 10 each cat cow, sidebends, thoracic rotation Reps/Minutes x 10 reps each quadruped TA with arm lifts Other Exercise Name added in OPP arm and leg Reps/Minutes x 5 reps each side PT-OP-T Assessment and Plan Start: 04/01/21 10:34 Freq: Status: Active Protocol: Document 06/03/21 10:35 [facility] (Rec: 06/03/21 14:05 [facility] [id number]) Physical Therapy Assessment Assessment Summary Assessment Saray continues to make good progress and her stabilization is much improved . Level 2 lower abdominal progress still causes some SI pressure so I encouraged Crsi to stick with the 1 b so as not to strain. She denies any back or SI pain. Physical Therapy Plan Frequency and Duration Frequency of Treatment 1x/Week Duration of Treatment 12 Plan of Care Start Date 05/20/21 Plan of Care End Date 08/19/21 Therapeutic Interventions Therapeutic Interventions Home Exercise Program,Manual Therapy,Neuromuscular Re- education,Patient/Caregiver Education,Self-Care/Home Management,Soft Tissue Mobilization,Therapeutic Exercises Modalities Biofeedback Next Visit Focus/Plan Next Note Type Treatment Note Next Visit Plan it will be a month inbetween visits so review all estabilished core exercises
--- NOTE | 2021-07-01 11:37 | PT.OTN ---
Current Diagnoses Umbilical hernia without obstruction or gangrene (07/01/21) Separation of muscle (nontraumatic), other site (07/01/21) Sprain of other parts of lumbar spine and pelvis, initial encounter (07/01/21) Physical Therapy Treatment Note PT-OP-A Visit Information Start: 04/01/21 10:34 Freq: Status: Active Protocol: Document 07/01/21 10:36 [facility] (Rec: 07/01/21 11:20 [facility] [id number]) Out-Patient Physical Therapy Visit Information Visit Information Visit Type Treatment Note Visit Start Time 10:35 Visit Stop Time 11:20 Total Visit Minutes 45 Visit Number 10 PT-OP-B Current Condition Start: 04/01/21 10:34 Freq: Status: Active Protocol: Document 04/01/21 10:30 [facility] (Rec: 04/01/21 10:44 [facility] [id number]) Current Condition History of Current Condition Onset Date with Current Complaints core and pelvic floor weakness, frequency of urination History of Current Condition pt is 2 months , she noticies that every time she gets up to feed her baby at night she has to void. She hasn't moved much overall but feels a sense of weakness in general. Even during the day she is voiding more frequently . She had a perineal tear and internal stiches. She is doing really well with her SI joint but when carrying her baby she notes her right side is alot stonger and left side is weak. The abdominal hernia doesn't seem as bad as she was worried it would be. Treatment Goals Patient/Caregiver Goals pts treatment goals include increasing core strength and stability for her SI joint and pelvic floor Prior Functional Status Baseline Function- ADL's Independent Baseline Function- Mobility Independent Baseline Function- Recreation/Hobbies pt was limited with exercise and gait distance during due to SI pain. Current Functional Impairments (Reported) Functional Limitations- Mobility/Gait limited in endurance and feels weak with mobility and gait at 2 months PT-OP-C Subjective Start: 04/01/21 10:34 Freq: Status: Active Protocol: Document 07/01/21 10:36 [facility] (Rec: 07/01/21 11:20 [facility] [id number]) OP-PT Subjective Patient Comments Patient Comments pt reports she is doing good, she can at times feel some pressure at her pubic bone with her abdominal exercises. She plans on returning to running at 6 months. 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 PT-OP-I Pelvic Floor Start: 04/01/21 10:38 Freq: Status: Active Protocol: Document 04/01/21 10:30 [facility] (Rec: 04/05/21 13:50 [facility] [id number]) Pelvic Floor Assessment Urine Pelvic Floor Surgery No Urinary Symptoms Urge Sensation Other Urinary Symptoms urinary frequency Leakage Cause Exercise Nocturia 1-2 Pelvic Clock Pelvic Clock 12-3 Atrophy Pelvic Clock 3-6 Atrophy Pelvic Clock 6-9 Atrophy,Tenderness Pelvic Clock 9-12 Atrophy Pelvic Clock Other right lateral wall tender to palpation with internal stitches felt Prolapse Cystocele Grade 1 Rectocele Grade 1 Perineal Descent Resting Absent Bearing Present SEMG (uV) Baseline 1.5 10 Second Contraction 3.9 Relaxation Fair Holding Fair Stability of Hold Fair SEMG Stability of Rest Fair Contraction Ability Voluntary Contraction Weak Voluntary Relaxation Weak Manual Muscle Testing Left 2 Manual Muscle Testing Right 1 Manual Muscle Testing Anterior 2 Manual Muscle Testing Posterior 2 Muscle Endurance (Seconds) 5 Comments Pelvic Floor Comments on EMG biofeedback 3.9 uv average and 10.7 uv max good healing of the vulvar region and labia with skin inpection, able to pull up and in from the perineum. Some scar tissue present at the perineum. PT-OP-L Special Tests Start: 04/01/21 10:38 Freq: Status: Active Protocol: Document 04/01/21 10:30 [facility] (Rec: 04/05/21 13:50 [facility] [id number]) Special Tests Other Special Tests Special Tests + ASLR on the left for right sided SI instability PT-OP-M Strength Start: 04/01/21 10:38 Freq: Status: Active Protocol: Document 04/01/21 10:30 [facility] (Rec: 04/05/21 13:50 [facility] [id number]) Trunk Strength Trunk Manual Muscle Testing Testing Position Supine Flexion 3 Fair Core Stabilization decreased activation of the Transverse abdominal muscle PT-OP-Q Treatments Start: 04/08/21 10:56 Freq: Status: Active Protocol: Document 07/01/21 10:38 [facility] (Rec: 07/01/21 11:37 [facility] [id number]) Therapeutic Exercises Supine Exercises crunches with ball squeeze Reps/Minutes x 10 reps LA progression level 1b Reps/Minutes x 20 reps Comments 1 a 1 b and level 2 pt did better following ball squeeze for pubic joint bridges with pelvic tilt Reps/Minutes x 10 reps Sidelying Exercises sidelying hip series Reps/Minutes x 10 each leg clam shells Reps/Minutes x 10 Other Exercises iliopsoas stretch Reps/Minutes hold 1 min each side Comments pt shown a few options for this stretch for home piriformis stretch Reps/Minutes hold 1 min each side Comments right side tighter reverse curl Reps/Minutes x 10 reps rolling like a ball Reps/Minutes x 10 the hundred Reps/Minutes x 100 PT-OP-T Assessment and Plan Start: 04/01/21 10:34 Freq: Status: Active Protocol: Document 07/01/21 10:38 [facility] (Rec: 07/01/21 11:37 [facility] [id number]) Physical Therapy Assessment Assessment Summary Assessment Saray continues to make progress, we added in a few stretches today for her hips and worked on SI stabilization . Ball squeeze to set her pubic joint first is helpful for stabilization with her TA with heel slides Physical Therapy Plan Frequency and Duration Frequency of Treatment 1x/Week Duration of Treatment 12 Plan of Care Start Date 05/20/21 Plan of Care End Date 08/19/21 Therapeutic Interventions Therapeutic Interventions Home Exercise Program,Manual Therapy,Neuromuscular Re- education,Patient/Caregiver Education,Self-Care/Home Management,Soft Tissue Mobilization,Therapeutic Exercises Modalities Biofeedback Next Visit Focus/Plan Next Note Type Treatment Note Next Visit Plan recheck all exercises and progress in one month
--- NOTE | 2021-07-29 14:06 | PT.OTN ---
Current Diagnoses Umbilical hernia without obstruction or gangrene (07/29/21) Separation of muscle (nontraumatic), other site (07/29/21) Sprain of other parts of lumbar spine and pelvis, initial encounter (07/29/21) Physical Therapy Treatment Note PT-OP-A Visit Information Start: 04/01/21 10:34 Freq: Status: Active Protocol: Document 07/29/21 10:35 [facility] (Rec: 07/29/21 14:05 [facility] [id number]) Out-Patient Physical Therapy Visit Information Visit Information Visit Type Treatment Note Visit Start Time 10:35 Visit Stop Time 11:20 Total Visit Minutes 45 Visit Number 11 PT-OP-B Current Condition Start: 04/01/21 10:34 Freq: Status: Active Protocol: Document 04/01/21 10:30 [facility] (Rec: 04/01/21 10:44 [facility] [id number]) Current Condition History of Current Condition Onset Date with Current Complaints core and pelvic floor weakness, frequency of urination History of Current Condition pt is 2 months , she noticies that every time she gets up to feed her baby at night she has to void. She hasn't moved much overall but feels a sense of weakness in general. Even during the day she is voiding more frequently . She had a perineal tear and internal stiches. She is doing really well with her SI joint but when carrying her baby she notes her right side is alot stonger and left side is weak. The abdominal hernia doesn't seem as bad as she was worried it would be. Treatment Goals Patient/Caregiver Goals pts treatment goals include increasing core strength and stability for her SI joint and pelvic floor Prior Functional Status Baseline Function- ADL's Independent Baseline Function- Mobility Independent Baseline Function- Recreation/Hobbies pt was limited with exercise and gait distance during due to SI pain. Current Functional Impairments (Reported) Functional Limitations- Mobility/Gait limited in endurance and feels weak with mobility and gait at 2 months PT-OP-C Subjective Start: 04/01/21 10:34 Freq: Status: Active Protocol: Document 07/29/21 10:35 [facility] (Rec: 07/29/21 13:57 [facility] [id number]) OP-PT Subjective Patient Comments Patient Comments pt is doing well overall and has felt really good with her core stabilization exercises. She has questions on when she can return to running. Cris also reports she feels like the left side of her abdomen is higher and at the end of the day She has been doing more things and she will notice more pubic symphysis. She played kick ball and felt sore the next day. 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 PT-OP-I Pelvic Floor Start: 04/01/21 10:38 Freq: Status: Active Protocol: Document 04/01/21 10:30 [facility] (Rec: 04/05/21 13:50 [facility] [id number]) Pelvic Floor Assessment Urine Pelvic Floor Surgery No Urinary Symptoms Urge Sensation Other Urinary Symptoms urinary frequency Leakage Cause Exercise Nocturia 1-2 Pelvic Clock Pelvic Clock 12-3 Atrophy Pelvic Clock 3-6 Atrophy Pelvic Clock 6-9 Atrophy,Tenderness Pelvic Clock 9-12 Atrophy Pelvic Clock Other right lateral wall tender to palpation with internal stitches felt Prolapse Cystocele Grade 1 Rectocele Grade 1 Perineal Descent Resting Absent Bearing Present SEMG (uV) Baseline 1.5 10 Second Contraction 3.9 Relaxation Fair Holding Fair Stability of Hold Fair SEMG Stability of Rest Fair Contraction Ability Voluntary Contraction Weak Voluntary Relaxation Weak Manual Muscle Testing Left 2 Manual Muscle Testing Right 1 Manual Muscle Testing Anterior 2 Manual Muscle Testing Posterior 2 Muscle Endurance (Seconds) 5 Comments Pelvic Floor Comments on EMG biofeedback 3.9 uv average and 10.7 uv max good healing of the vulvar region and labia with skin inpection, able to pull up and in from the perineum. Some scar tissue present at the perineum. PT-OP-L Special Tests Start: 04/01/21 10:38 Freq: Status: Active Protocol: Document 04/01/21 10:30 [facility] (Rec: 04/05/21 13:50 [facility] [id number]) Special Tests Other Special Tests Special Tests + ASLR on the left for right sided SI instability PT-OP-M Strength Start: 04/01/21 10:38 Freq: Status: Active Protocol: Document 04/01/21 10:30 [facility] (Rec: 04/05/21 13:50 [facility] [id number]) Trunk Strength Trunk Manual Muscle Testing Testing Position Supine Flexion 3 Fair Core Stabilization decreased activation of the Transverse abdominal muscle PT-OP-Q Treatments Start: 04/08/21 10:56 Freq: Status: Active Protocol: Document 07/29/21 10:35 [facility] (Rec: 07/29/21 13:57 [facility] [id number]) Therapeutic Exercises Standing Exercises side steps with mini squats Reps/Minutes x 20 each direction single leg squats Reps/Minutes x 10 each direction, forward, side, back lunges Reps/Minutes 2 x 10 reps squats Reps/Minutes 2 x 10 reps Other Exercises iliopsoas stretch Reps/Minutes hold 1 min each side Comments 1/2 kneeling position PT-OP-T Assessment and Plan Start: 04/01/21 10:34 Freq: Status: Active Protocol: Document 07/29/21 10:35 [facility] (Rec: 07/29/21 13:57 [facility] [id number]) Physical Therapy Assessment Goals 3 Impairment Decreased endurance of the pelvic floor Detention Goal (LTG) Cris is able to sustain a pelvic floor contraction x 10 seconds in standing and supine for improved functional support of her pelvic organs GOAL MET LTG Duration 8 weeks 2 Impairment Abdominal diastasis and core weakness Short Term Goal (STG) Cris is able to activate her transverse abdominal musculature and sustain a contraction x 10 seconds Goal met STG Duration 3 weeks Tower Supervisor Goal (LTG) Cris demonstrates improved core strength including the ability to curl up without abdominal separation Good progress LTG Duration 8 weeks 1 Impairment pelvic floor weakness Short Term Goal (STG) Cris is able to increase her MMT(from 1/5 on the right and 2/5 all others) by one muscle grade for improved support of her bladder Goal met STG Duration 4 weeks Tower Supervisor Goal (LTG) Cris is able to improve her pelvic floor muscle strength to 4/5 MMT or better for improved pelvic organ support and to be able to progress her exercise and activity level without any urinary leakage. No c/o urinary leakage and improving pelvic floor strength LTG Duration 8 weeks Decrease low back paraspinal tightness and anterior pelvic tilt Impairment Increased lumbar lordosis with and tightness of the lumbar paraspinals Tower Supervisor Goal (LTG) pt has been educated with stretches for her low back and core strengthening exercises to reduce increased lordosis GOAL MET Decrease complaints of left sided SI pain and pubic pain Impairment pt reports pain 4-6/10 in her left SI joint and pubic symphysis worse at night and when carrying her 2 year old Assessment Summary Assessment We worked on more dynamic activities today to progress Cris towards more activity. We talked about how she is still only 5 months post and to listen to her symptoms if she returns to running. She plans on starting with pushing the stroller on the track and walking. Cris did have some tightness in her obliques today so we talked about stretching over the foam roll to help relax the upper abdominal wall. Overall she is doing much better and is feeling stronger post . Cris will be discharged from PT at this time
== END 2021-08-05 10:59 ==
LOC: PHYS 10:30
PROVIDERS: PCP Family Medicine; Referring Provider Obstetrics & Gynecology; Visit Provider Obstetrics & Gynecology
DX: M62.08 Separation of muscle (nontraumatic), other site (principal); K42.9 Umbilical hernia without obstruction or gangrene; S33.8XXA Sprain of other parts of lumbar spine and pelvis, initial encounter
CPT/HCPCS: 97110; 97161

== ENCOUNTER → 2021-08-05 10:14 | Outpatient (CLI) | payer OTHER, SELFPAY ==
[2021-08-05 10:50] LABS: Add Manual Diff / Slide Review NO; Basophils Absolute Auto 100 /uL (0-100); Eosinophils Absolute Auto 200 /uL (0-450); Eosinophils Percent Auto 2.4 % (2-4); Hematocrit 40.5 % (36-46); Lymphocytes Absolute Auto 2400 /uL (1100-4500); Mean Corpuscular HGB Conc 34.6 % (30-36); Mean Corpuscular Hemoglobin 30.1 PG (26-34); Mean Corpuscular Volume 86.9 fL (80-100); Monocytes Absolute Auto 600 /uL (0-900); Neutrophils Absolute Auto 3900 /uL (1500-7000); Neutrophils Percent Auto 54.6 % (50-75); Platelet Count 262 X10^3/uL (150-400); Red Blood Cell Count 4.66 X10^6/uL (4.0-5.2); Red Cell Distribution Width 12.9 % (11.6-14.8); White Blood Cell Count 7.1 X10^3/uL (4.5-11.0)
[2021-08-05 11:16] LABS: Vitamin D 25 Hydroxy (D3) 54.7 ng/mL (30.0-100.0)
== END ==
PROVIDERS: PCP Family Medicine; Referring Provider Family Medicine; Visit Provider Family Medicine
DX: D64.9 Anemia, unspecified (principal); E55.9 Vitamin D deficiency, unspecified
CPT/HCPCS: 36415; 82306; 85025

== ENCOUNTER → 2023-03-25 09:45 | Outpatient (CLI) | payer OTHER, SELFPAY | PROVIDERS: PCP Family Medicine; Referring Provider Family Medicine; Visit Provider Physician Assistant | DX: S91.001A Unspecified open wound, right ankle, initial encounter (principal); S81.801A Unspecified open wound, right lower leg, initial encounter; B95.7 Other staphylococcus as the cause of diseases classified elsewhere; L53.9 Erythematous condition, unspecified; Z79.2 Long term (current) use of antibiotics | CPT/HCPCS: 11042; 73610; 87070; 87075; 87077; 87186; 87205; 99204; 99214 ==

== ENCOUNTER → 2023-03-25 11:28 | Outpatient (CLI) | payer OTHER, SELFPAY ==
--- NOTE | 2023-03-25 11:30 | DI.RAD.S_ITS ---
PROCEDURE: XR ANKLE RT MIN 3V INDICATIONS: non-healing wound of right ankle TECHNIQUE: 3 views of the ankle were acquired. COMPARISON: None. FINDINGS: Bones: No fractures or dislocations. Ankle mortise is normally aligned. No suspicious bony lesions. Soft tissues: No tibiotalar joint effusion. Achilles tendon appears normal. Possible soft tissue defect over the lateral ankle, not well evaluated by radiograph. IMPRESSION: No acute bony abnormality or significant effusion. Dictated by: Zack Mcgovern M.D. on 03/25/2023 at 13:06 Approved by: Zack Mcgovern M.D. on 03/25/2023 at 13:07
== END ==
PROVIDERS: PCP Family Medicine; Referring Provider Physician Assistant; Visit Provider Physician Assistant
DX: S91.001A Unspecified open wound, right ankle, initial encounter (principal)
CPT/HCPCS: 73610

== ENCOUNTER → 2023-03-29 06:47 | Outpatient (CLI) | payer OTHER, SELFPAY ==
--- NOTE | 2023-03-29 06:48 | DI.US.S_ITS ---
PROCEDURE: US ARTERIAL DUPLEX LE RT INDICATIONS: Abnormal OTF, RLE wound TECHNIQUE: Color and pulse Doppler interrogation was performed of the right lower extremity arterial system, with image documentation. COMPARISON: None. FINDINGS: Common femoral artery: 112 cm/sec, with triphasic flow. Deep femoral artery: 77 cm/sec, with triphasic flow. Proximal superficial femoral artery: 80 cm/sec, with triphasic flow. Mid superficial femoral artery: 110 cm/sec, with triphasic flow. Distal superficial femoral artery: 75 cm/sec, with triphasic flow. Popliteal artery: 43 cm/sec, with triphasic flow. Posterior tibial artery: 50 cm/sec, with triphasic flow. Anterior tibial artery/dorsalis pedis: 56 cm/sec, with triphasic flow. Garcia-scale imaging description: No focal hemodynamically significant stenosis. No atheromatous plaque visualized. IMPRESSION: No focal hemodynamically significant stenosis. Dictated by: Sabrina May M.D. on 03/29/2023 at 10:29 Approved by: Sabrina May M.D. on 03/29/2023 at 10:36
== END ==
LOC: US 06:48
PROVIDERS: PCP Family Medicine; Referring Provider Physician Assistant; Visit Provider Physician Assistant
DX: S81.801A Unspecified open wound, right lower leg, initial encounter (principal)
CPT/HCPCS: 93926

== ENCOUNTER → 2023-04-07 11:25 | Outpatient (CLI) | payer OTHER, SELFPAY | LOC: WC 11:26 | PROVIDERS: PCP Family Medicine; Referring Provider Family Medicine; Visit Provider Surgery | DX: S91.001A Unspecified open wound, right ankle, initial encounter (principal); L53.9 Erythematous condition, unspecified | CPT/HCPCS: 11042; 99214 ==

== ENCOUNTER → 2023-04-11 09:25 | Outpatient (CLI) | payer OTHER, SELFPAY | PROVIDERS: PCP Family Medicine; Referring Provider Family Medicine; Visit Provider Surgery | DX: S91.001A Unspecified open wound, right ankle, initial encounter (principal); L53.9 Erythematous condition, unspecified | CPT/HCPCS: 11042 ==

== ENCOUNTER → 2023-04-15 17:16 | Outpatient (CLI) | payer OTHER, SELFPAY ==
--- NOTE | 2023-04-15 17:16 | DI.MRI.S_ITS ---
PROCEDURE: MR ANKLE RT WO/W CON INDICATIONS: Non-healing wound of right ankle TECHNIQUE: Noncontrast sagittal T1 spin echo and T2 fast spin echo with fat saturation, axial proton density fast spin echo and T2 fast spin echo with fat saturation, axial T1 spin echo with fat saturation, coronal T1 spin echo and T2 fast spin echo with fat saturation through the ankle/hindfoot. Post-contrast axial, coronal, and sagittal T1 spin echo with fat saturation through the ankle/hindfoot. COMPARISON: [facility], CR, XR ANKLE RT MIN 3V, 03/25/2023, 6:44. FINDINGS: Image quality: Excellent. Bones and joints: No acute trabecular bone injury or fracture. No hindfoot coalitions. No osteochondral injuries of the talar dome. Cystic changes are seen at the medial tibial plafond with mild surrounding osseous edema. No focal cartilage defect is seen. No loose osteochondral fragment. There is skin ulceration at the lateral aspect of the ankle adjacent to the lateral malleolus with mild surrounding osseous edema. No focal fluid collection is seen. No significant osseous edema or enhancement. No enhancing soft tissue mass. Mild nonspecific edema in the midfoot adjacent to the 3rd metatarsal base without associated osseous edema. Medial structures: The deltoid ligament and the spring ligament complex are intact. The posterior tibialis, flexor digitorum longus, and flexor hallucis longus tendons are intact. The posterior tibial neurovascular bundle appears normal within the tarsal tunnel, without extrinsic mass effect. Lateral structures: The anterior talofibular, calcaneofibular, and posterior talofibular ligaments are intact. The anterior and posterior tibiofibular ligaments are intact. Mild peroneus brevis and longus tenosynovitis. The sinus tarsi demonstrates normal fatty signal. Anterior structures: The tibialis anterior, extensor hallucis longus, and extensor digitorum longus tendons appear intact. The dorsal talonavicular ligament appears intact. Posterior and plantar structures: Achilles tendon is intact. The proximal plantar fascia is intact. No abductor digiti minimi muscle atrophy to suggest Oliva neuropathy. IMPRESSION: 1. Soft tissue ulcer at the lateral aspect of the ankle with stranding and soft tissue edema and enhancement. No focal fluid collection is seen. No MRI evidence of osteomyelitis. 2. Mild peroneus brevis and longus tenosynovitis. 3. Focal subchondral cystic changes at the medial tibial plafond is likely related to overlying cartilage fissuring. No significant cartilage defect or loose osteochondral fragment is seen. Approved by: Rony Núñez M.D. on 04/18/2023 at 9:30
== END ==
LOC: MRI 17:16
PROVIDERS: PCP Family Medicine; Referring Provider Surgery; Visit Provider Surgery
DX: S91.001A Unspecified open wound, right ankle, initial encounter (principal); L97.319 Non-pressure chronic ulcer of right ankle with unspecified severity; M65.871 Other synovitis and tenosynovitis, right ankle and foot; X58.XXXA Exposure to other specified factors, initial encounter
CPT/HCPCS: 73723; A9579

== ENCOUNTER → 2023-04-18 11:12 | Outpatient (CLI) | payer OTHER, SELFPAY | LOC: WC 11:12 | PROVIDERS: PCP Family Medicine; Referring Provider Family Medicine; Visit Provider Surgery | DX: T81.89XA Other complications of procedures, not elsewhere classified, initial encounter (principal); S91.001A Unspecified open wound, right ankle, initial encounter; L53.9 Erythematous condition, unspecified | CPT/HCPCS: 11042 ==

== ENCOUNTER → 2023-04-25 10:55 | Outpatient (CLI) | payer OTHER, SELFPAY | LOC: WC 10:56 | PROVIDERS: PCP Family Medicine; Referring Provider Family Medicine; Visit Provider Surgery | DX: S91.001A Unspecified open wound, right ankle, initial encounter (principal); L53.9 Erythematous condition, unspecified; R23.3 Spontaneous ecchymoses; L98.8 Other specified disorders of the skin and subcutaneous tissue; B95.62 Methicillin resistant Staphylococcus aureus infection as the cause of diseases classified elsewhere | CPT/HCPCS: 99213 ==

== ENCOUNTER → 2023-05-02 11:21 | Outpatient (CLI) | payer OTHER, SELFPAY | LOC: WC 11:24 | PROVIDERS: PCP Family Medicine; Referring Provider Family Medicine; Visit Provider Surgery | DX: S91.001A Unspecified open wound, right ankle, initial encounter (principal); L98.8 Other specified disorders of the skin and subcutaneous tissue; L53.9 Erythematous condition, unspecified; R23.3 Spontaneous ecchymoses | CPT/HCPCS: 11042 ==

== ENCOUNTER → 2023-05-09 15:09 | Outpatient (CLI) | payer OTHER, SELFPAY | LOC: WC 15:10 | PROVIDERS: PCP Family Medicine; Referring Provider Family Medicine; Visit Provider Surgery | DX: S91.001A Unspecified open wound, right ankle, initial encounter (principal); L53.9 Erythematous condition, unspecified; R23.3 Spontaneous ecchymoses; B95.62 Methicillin resistant Staphylococcus aureus infection as the cause of diseases classified elsewhere | CPT/HCPCS: 99213 ==

== ENCOUNTER → 2023-05-31 08:50 | Outpatient (CLI) | payer OTHER, SELFPAY ==
[2023-05-31 09:20] LABS: Add Manual Diff / Slide Review NO; Basophils Absolute Auto 100 /uL (0-100); Basophils Percent Auto 1.2 % (0-2); Eosinophils Absolute Auto 100 /uL (0-450); Eosinophils Percent Auto 2.8 % (2-4); Hematocrit 40.5 % (36-46); Hemoglobin 13.9 g/dL (12.0-16.0); Lymphocytes Absolute Auto 1700 /uL (1100-4500); Lymphocytes Percent Auto 31.6 % (25-40); Mean Corpuscular HGB Conc 34.4 % (30-36); Mean Corpuscular Hemoglobin 30.8 PG (26-34); Mean Corpuscular Volume 89.6 fL (80-100); Monocytes Absolute Auto 400 /uL (0-900); Monocytes Percent Auto 7.1 % (3-14); Neutrophils Absolute Auto 3100 /uL (1500-7000); Neutrophils Percent Auto 57.3 % (50-75); Platelet Count 230 X10^3/uL (150-400); Red Blood Cell Count 4.52 X10^6/uL (4.0-5.2); Red Cell Distribution Width 13.1 % (11.6-14.8); White Blood Cell Count 5.4 X10^3/uL (4.5-11.0)
[2023-05-31 09:39] LABS: Alanine Aminotransferase 12 IU/L (<35); Albumin 4.2 g/dL (3.5-5.0); Albumin Globulin Ratio 1.4 (1.0-2.8); Alkaline Phosphatase 58 U/L (38-126); Aspartate Aminotransferase 16 IU/L (14-36); BUN Creatinine Ratio 14.1 (6-22); Bilirubin Total 0.4 mg/dL (0.2-1.3); Blood Urea Nitrogen 9 mg/dL (7-17); Calcium 9.3 mg/dL (8.4-10.2); Carbon Dioxide 26 mmol/L (22-32); Cholesterol 154 mg/dL (140-199); Estimated Glomerular Filt Rate > 60 mL/min (>60); Globulin 2.9 g/dL (1.7-4.1); Glucose 93 mg/dL (70-100); HDL Cholesterol 51 mg/dL (40-60); HEMOLYSIS < 15 (0-50); LDL Cholesterol Calculated 91 mg/dL (<100); Total Protein 7.1 g/dL (6.3-8.2); Triglycerides 60 mg/dL (35-150)
[2023-05-31 10:00] LABS: Chloride 106 mmol/L (98-107); Potassium 4.2 mmol/L (3.4-5.1); Sodium 139 mmol/L (137-145)
[2023-05-31 10:16] LABS: TSH w/ Reflex to FT4 0.91 uIU/mL (0.47-4.68)
[2023-05-31 20:40] LABS: Vitamin D 25 Hydroxy (D3) 29.6 ng/mL (30.0-100.0)
[2023-06-02 08:08] LABS: Apolipoprotein B 75 mg/dL (<90)
== END ==
LOC: LAB 08:51
PROVIDERS: PCP Family Medicine; Referring Provider Family Medicine; Visit Provider Family Medicine
DX: E55.9 Vitamin D deficiency, unspecified (principal); D64.9 Anemia, unspecified; F41.9 Anxiety disorder, unspecified
CPT/HCPCS: 80053; 80061; 82172; 82306; 84443; 85025

== ENCOUNTER 2024-02-28 10:36 | Outpatient (RCR) | payer OTHER, SELFPAY ==
--- NOTE | 2024-02-28 17:45 | PT.OIE ---
Current Diagnoses Separation of muscle (nontraumatic), other site (02/28/24) Past Medical History (Last Reviewed 05/04/23 @ 15:39 by Jean Paul Hernandez RN) AMA (advanced maternal age) multigravida 35+ Contact dermatitis Dandruff Endometriosis Iron deficiency anemia [place] exposure Sprain, symphysis pubis (spontaneous vaginal delivery) (~12/02/15) (spontaneous vaginal delivery) (~04/13/18) Whooping cough Past Surgical History (Last Reviewed 05/04/23 @ 15:39 by Jean Paul Hernandez RN) [place] teeth extracted Visit Care Team Role Provider Type Dontrell Leary MD Attending Provider Physician Family Provider Primary Care Provider Referring Provider Specialty: Family Practice Address: [address] [place] [address] Email: [email or web address] Physical Therapy Initial Evaluation PT-OP-A Visit Information Start: 02/28/24 10:48 Freq: Status: Active Protocol: Document 02/28/24 10:45 [facility] (Rec: 02/28/24 17:52 [facility] [id number]) Out-Patient Physical Therapy Visit Information Visit Information Visit Type Initial Evaluation Visit Start Time 10:45 Visit Stop Time 11:15 Visit Number 1 Evaluation Information Evaluation Date 02/28/24 PT-OP-B Current Condition Start: 02/28/24 10:48 Freq: Status: Active Protocol: Document 02/28/24 10:45 [facility] (Rec: 02/28/24 11:36 [facility] [id number]) Current Condition History of Current Condition Onset Date symptoms began 9 years ago with Current Complaints umbilical hernia and diastasis recti History of Current Condition umbilical hernia and diastasis recti that has worsened over the past 9 years with her . Cris has a history of 3 pregnancies and deliveries. Cris Last year had a wound on her ankle on her right side that took a long time to heal while she was going through that she was in a boot. She felt that she lost a great deal of strength during that time. When she started doing mat pilates again it made her diastasis worse. She has since started a program called [employer] and is has significantly helped her symptoms. She still is limited with pilates, yoga, and gymnastics even with strengthening due to the abdominal seperation THree kids PT-OP-C Subjective Start: 02/28/24 10:48 Freq: Status: Active Protocol: Document 02/28/24 10:45 [facility] (Rec: 03/12/24 17:23 [facility] [id number]) Patient Questionnaires Pelvic Pain and Urgency/Frequency Patient Symptom Scale Pelvic Pain Score 9 PT-OP-F Manual Assessment Start: 02/28/24 10:48 Freq: Status: Active Protocol: Document 02/28/24 10:45 [facility] (Rec: 03/12/24 17:23 [facility] [id number]) Manual Assessments Soft Tissue Assessment Soft Tissue Mobility Assessment umbilical hernia, visable diastasis present with 3+ finger width at the umbilicus PT-OP-J Posture/Palpation/Skin Start: 02/28/24 10:48 Freq: Status: Active Protocol: Document 02/28/24 10:45 [facility] (Rec: 03/12/24 17:23 [facility] [id number]) Palpation Assessment Location diastasis recti assessment Palpation Location midline abdominal wall Palpation Details Diastasis recti assessement reveals a 3+ diastasis that extends from 2 proximal from the umbilicus to 2 distally from the umbilicus. There is a umbilical hernia visable and palpated as well PT-OP-M Strength Start: 02/28/24 10:48 Freq: Status: Active Protocol: Document 02/28/24 10:45 [facility] (Rec: 03/12/24 17:23 [facility] [id number]) Trunk Strength Trunk Manual Muscle Testing Flexion 4 Good Core Stabilization Cris is able to stabilize with her TA and has a negative ASLR test bilaterally, she is able to avoid abdominal bulging with TA facilitation PT-OP-T Assessment and Plan Start: 02/28/24 10:48 Freq: Status: Active Protocol: Document 02/28/24 10:45 [facility] (Rec: 03/12/24 17:23 [facility] [id number]) Physical Therapy Assessment Assessment Summary Assessment Cris is a 39 year old female who presents to Physical Therapy with both a umbilical hernia as well as diastasis. She has had 3 pregnancies and deliveries and was seen PT 4 years ago during her third . At that time she was seeking care to avoid undue strain to her abdominal wall as she was presenting with both the umbilical hernia as well as diastasis recti. She was experiencing SI dysfunction during her . She reports her diastasis has worsened over the past year as she suffered from a infection on her ankle that took a very long time to heal and it didn't allow her to exercise as she was used to . She reports taking a yoga class and the instructor told her that she needed to seek help for the diastasis as during the class she could visably see the hernia. Recently she has taken up a diastasis core strengthening program called [employer]. She feels this has really helped her however she seeks a PT consult to see if there is anything more she can do. With assessment today there is a umbilical hernia present as well as 3+ finger width diastasis running from 2 proximal from the umbilicus to 2 distal to the umbilicus. Cris is able to properly recruit her transverse abdominal musculature and has a negative ASLR test demonstrating good SI joint stability. She is not currently bulging outward with abdominal flexion however the diastasis widens. Cirs has worked hard on her strength program and I feel at this point she demonstrates really good control with her inner core muscles. Due to her strength that she has I dont feel I am able to help her beyond where she is at. I feel she is a surgical candidate at this point both for the umbilical hernia as well as diastasis. She is limited in her recreation activities due the hernia. She would like to help her kids with gymnastics and is not able to demonstrate the gynmastics moves. She is also limited in higher level pilates and yoga. I would like to refer Cris back for consult referral to orthopedics for surgical consult. Thank you! Physical Therapy Plan Discharge Physical Therapy Discharge Comments I would like to refer Cris for orthopedic consult.
--- NOTE | 2024-02-28 17:46 | PT.OPPOC ---
Physical, Occupational & Speech Therapy At [facility] Current Diagnoses Separation of muscle (nontraumatic), other site (02/28/24) Visit Care Team Role Provider Type Dontrell Leary MD Attending Provider Physician Family Provider Primary Care Provider Referring Provider Specialty: Family Practice Address: [address] [place] [address], [facility] Email: [email or web address] Plan Of Care PT-OP-B Current Condition Start: 02/28/24 10:48 Freq: Status: Active Protocol: Document 02/28/24 10:45 [facility] (Rec: 02/28/24 11:36 [facility] [id number]) Current Condition History of Current Condition Onset Date symptoms began 9 years ago with Current Complaints umbilical hernia and diastasis recti History of Current Condition umbilical hernia and diastasis recti that has worsened over the past 9 years with her . Cris has a history of 3 pregnancies and deliveries. Cris Last year had a wound on her ankle on her right side that took a long time to heal while she was going through that she was in a boot. She felt that she lost a great deal of strength during that time. When she started doing mat pilates again it made her diastasis worse. She has since started a program called [employer] and is has significantly helped her symptoms. She still is limited with pilates, yoga, and gymnastics even with strengthening due to the abdominal separation Three kids PT-OP-T Assessment and Plan Start: 02/28/24 10:48 Freq: Status: Active Protocol: Document 02/28/24 10:45 [facility] (Rec: 03/12/24 17:23 [facility] [id number]) Physical Therapy Assessment Assessment Summary Assessment Cris is a 39 year old female who presents to Physical Therapy with both aumbilical hernia as well as diastasis. She has had 3 pregnancies and deliveries and was seen PT 4 years ago during her third . At that time she was seeking care to avoid undue strain to her abdominal wall as she was presenting with both the umbilical hernia as well as diastasis recti. She was experiencing SI dysfunction during her . She reports her diastasis has worsened over the past year as she suffered from a infection on her ankle that took a very long time to heal and it didn't allow her to exercise as she was used to . She reports taking a yoga class and the instructor told her that she needed to seek help for the diastasis as during the class she could visibly see the hernia. Recently she has taken up a diastasis core strengthening program called [employer]. She feels this has really helped her however she seeks a PT consult to see if there is anything more she can do. With assessment today there is a umbilical hernia present as well as 3+ finger width diastasis running from 2 proximal from the umbilicus to 2 distal to the umbilicus. Cris is able to properly recruit her transverse abdominal musculature and has a negative ASLR test demonstrating good SI joint stability. She is not currently bulging outward with abdominal flexion however the diastasis widens. Cris has worked hard on her strength program and I feel at this point she demonstrates really good control with her inner core muscles. Due to her strength that she has I don't feel I am able to help her beyond where she is at. I feel she is a surgical candidate at this point both for the umbilical hernia as well as diastasis. She is limited in her recreation activities due the hernia. She would like to help her kids with gymnastics and is not able to demonstrate the gymnastics moves. She is also limited in higher level pilates and yoga. I would like to refer Cris back for consult referral to orthopedics for surgical consult. Thank you! Physical Therapy Plan Discharge Physical Therapy Discharge Comments I would like to refer Cris for orthopedic consult. Electronically Signed by: Lorenza Duke, PT 03/12/24 2676 If you are in agreement with this Plan of Care, please return a signed and dated copy. I have reviewed this Plan of Care and certify that the skilled therapy services above are required to meet the patient?s needs. Physician Signature Date Printed Name and Credentials Clinical Instructor Signature Printed Name and Credentials
--- NOTE | 2024-03-13 09:15 | PT.OPDS ---
Current Diagnoses Separation of muscle (nontraumatic), other site (02/28/24) Visit Care Team Role Provider Type Dontrell Leary MD Attending Provider Physician Family Provider Primary Care Provider Referring Provider Specialty: Family Practice Address: [address] [place] [address], [facility] Email: [email or web address] Visit Number Visit Number 1 Discharge Summary PT-OP-B Current Condition Start: 02/28/24 10:48 Freq: Status: Active Protocol: Document 02/28/24 10:45 [facility] (Rec: 02/28/24 11:36 [facility] [id number]) Current Condition History of Current Condition Onset Date symptoms began 9 years ago with Current Complaints umbilical hernia and diastasis recti History of Current Condition umbilical hernia and diastasis recti that has worsened over the past 9 years with her . Cris has a history of 3 pregnancies and deliveries. Cris Last year had a wound on her ankle on her right side that took a long time to heal while she was going through that she was in a boot. She felt that she lost a great deal of strength during that time. When she started doing mat pilates again it made her diastasis worse. She has since started a program called [employer] and is has significantly helped her symptoms. She still is limited with pilates, yoga, and gymnastics even with strengthening due to the abdominal seperation THree kids PT-OP-C Subjective Start: 02/28/24 10:48 Freq: Status: Active Protocol: Document 02/28/24 10:45 [facility] (Rec: 03/12/24 17:23 [facility] [id number]) Patient Questionnaires Pelvic Pain and Urgency/Frequency Patient Symptom Scale Pelvic Pain Score 9 PT-OP-F Manual Assessment Start: 02/28/24 10:48 Freq: Status: Active Protocol: Document 02/28/24 10:45 [facility] (Rec: 03/12/24 17:23 [facility] [id number]) Manual Assessments Soft Tissue Assessment Soft Tissue Mobility Assessment umbilical hernia, visable diastasis present with 3+ finger width at the umbilicus PT-OP-J Posture/Palpation/Skin Start: 02/28/24 10:48 Freq: Status: Active Protocol: Document 02/28/24 10:45 [facility] (Rec: 03/12/24 17:23 [facility] [id number]) Palpation Assessment Location diastasis recti assessment Palpation Location midline abdominal wall Palpation Details Diastasis recti assessement reveals a 3+ diastasis that extends from 2 proximal from the umbilicus to 2 distally from the umbilicus. There is a umbilical hernia visable and palpated as well PT-OP-M Strength Start: 02/28/24 10:48 Freq: Status: Active Protocol: Document 02/28/24 10:45 [facility] (Rec: 03/12/24 17:23 [facility] [id number]) Trunk Strength Trunk Manual Muscle Testing Flexion 4 Good Core Stabilization Cris is able to stabilize with her TA and has a negative ASLR test bilaterally, she is able to avoid abdominal bulging with TA facilitation PT-OP-T Assessment and Plan Start: 02/28/24 10:48 Freq: Status: Active Protocol: Document 02/28/24 10:45 [facility] (Rec: 03/12/24 17:23 [facility] [id number]) Physical Therapy Assessment Assessment Summary Assessment Cris is a 39 year old female who presents to Physical Therapy with osmany umbilical hernia as well as diastasis. She has had 3 pregnancies and deliveries and was seen PT 4 years ago during her third . At that time she was seeking care to avoid undue strain to her abdominal wall as she was presenting with both the umbilical hernia as well as diastasis recti. She was experiencing SI dysfunction during her . She reports her diastasis has worsened over the past year as she suffered from a infection on her ankle that took a very long time to heal and it didn't allow her to exercise as she was used to . She reports taking a yoga class and the instructor told her that she needed to seek help for the diastasis as during the class she could visably see the hernia. Recently she has taken up a diastasis core strengthening program called [employer]. She feels this has really helped her however she seeks a PT consult to see if there is anything more she can do. With assessment today there is a umbilical hernia present as well as 3+ finger width diastasis running from 2 proximal from the umbilicus to 2 distal to the umbilicus. Cris is able to properly recruit her transverse abdominal musculature and has a negative ASLR test demonstrating good SI joint stability. She is not curently bulging outward with abdominal flexion however the diastasis widens. Cris has worked hard on her strength program and I feel at this point she demonstrates really good conrol with her inner core muscles. Due to her strength that she has I dont feel I am able to help her beyond where she is at. I feel she is a surgical candidate at this point both for the umbilical hernia as well as diastasis. She is limited in her recreation activities due the hernia. She would like to help her kids with gymnastics and is not able to demonstrate the gynmastics moves. She is also limited in higher level pilates and yoga. I would like to refer Cris back for consult referral to orthopedics for surgical consult. Thank you! Physical Therapy Plan Discharge Physical Therapy Discharge Comments I would like to refer Cris for orthopedic consult.
== END 2024-03-22 12:21 | disposition home or self-care (01) ==
LOC: PHYS 10:36
PROVIDERS: Family Provider Family Medicine; PCP Family Medicine; Referring Provider Family Medicine; Visit Provider Family Medicine
DX: M62.08 Separation of muscle (nontraumatic), other site (principal)
CPT/HCPCS: 97161